=== PATIENT | male | born 1955 | race Caucasian/White ===

== ENCOUNTER 2018-07-28 19:49 | Outpatient (REF) | payer MEDICAID, SELFPAY ==
[2018-07-28 22:15] LABS: HCT 42.5 % (40.0-50.0); HGB 13.6 g/dL (13.5-17.5); Mean Corpuscular Hemoglobin 28.6 pg (27.0-33.0); Mean Corpuscular Volume 89.5 fL (80-95); Mean Platelet Volume 12.1 fL (8.0-11.0); Platelet Count 225 x1000/uL (130-400); RBC 4.75 m/cumm (4.50-6.00); RBC Distribution Width 18.3 % (11.8-14.1); Reticulocyte 1.2 % (0.5-2.4); White Blood Cell Count 6.36 k/cumm (4.4-10.8)
[2018-07-28 22:23] LABS: Albumin 3.6 g/dL (3.4-5.0)
[2018-07-28 23:04] LABS: Iron 73 ug/dL (50-175); Total Iron Binding Capacity 318 ug/dL (250-450); Transferrin Sat 23 % (20-55)
== END 2018-07-28 20:09 ==
LOC: NCHCN 19:49
PROVIDERS: PCP Physician Assistant; Visit Provider Internal Medicine
DX: D64.9 Anemia, unspecified (principal); M54.12 Radiculopathy, cervical region; M75.100 Unspecified rotator cuff tear or rupture of unspecified shoulder, not specified as traumatic
CPT/HCPCS: 85027; 82040; 83540; 83550; 85045

== ENCOUNTER 2019-05-12 08:05 | Outpatient (CLI) | payer MEDICAID, SELFPAY ==
[2019-05-12 08:25] LABS: Abs Immature Grans 0.01 k/cumm (0.0-0.09); Absolute Basophil Count 0.01 k/cumm (0.0-0.2); Absolute Eosinophil Count 0.02 k/cumm (0.0-0.7); Absolute Lymphocyte Count 1.42 k/cumm (1.2-3.4); Absolute Monocyte Count 0.67 k/cumm (0.11-0.7); Absolute Neutrophil Count 2.84 k/cumm (1.2-6.7); Basophils % 0.2; Eosinophils % 0.4; HCT 38.8 % (40.0-50.0); Immature Grans % 0.2; Lymphocytes % 28.6; Mean Corp. HGB Concentration 33.5 g/dL (32.0-36.0); Mean Corpuscular Hemoglobin 30.4 pg (27.0-33.0); Mean Corpuscular Volume 90.9 fL (80-95); Mean Platelet Volume 9.3 fL (8.0-11.0); Monocytes % 13.5; Neutrophils % 57.1; Platelet Count 240 x1000/uL (130-400); RBC 4.27 m/cumm (4.50-6.00); RBC Distribution Width 15.3 % (11.8-14.1); White Blood Cell Count 4.97 k/cumm (4.4-10.8)
[2019-05-12 08:56] LABS: ALT 37 U/L (12-78); AST 20 U/L (15-37); Albumin 3.5 g/dL (3.4-5.0); Alkaline Phosphatase 80 U/L (46-116); Anion Gap 7.4 mmol/L (3-11); BUN 21 mg/dL (7-18); Bilirubin, Total 0.3 mg/dL (0.2-1.0); CO2 27.6 mmol/L (21.0-32.0); CREATININE 1.02 mg/dL (0.70-1.30); Calcium 8.4 mg/dL (8.5-10.1); Chloride 104 mmol/L (98-107); Glucose 129 mg/dL (70-100); LDH 171 U/L (85-227); Sodium 139 mmol/L (136-145); TSH 5.37 uIU/mL (0.358-3.74); Total Protein 7.3 g/dL (6.4-8.2)
[2019-05-12 09:19] LABS: T4 7.6 ug/dL (4.5-12.5)
== END 2019-05-12 08:25 ==
PROVIDERS: PCP Internal Medicine; Visit Provider Registered Nurse Oncology
DX: C34.11 Malignant neoplasm of upper lobe, right bronchus or lung (principal)
CPT/HCPCS: 36415; 80053; 83615; 84436; 84443; 85025

== ENCOUNTER 2019-06-02 07:41 | Outpatient (CLI) | payer MEDICAID, SELFPAY ==
[2019-06-02 07:58] LABS: Abs Immature Grans 0.01 k/cumm (0.0-0.09); Absolute Basophil Count 0.02 k/cumm (0.0-0.2); Absolute Eosinophil Count 0.02 k/cumm (0.0-0.7); Absolute Lymphocyte Count 1.73 k/cumm (1.2-3.4); Absolute Monocyte Count 1.04 k/cumm (0.11-0.7); Absolute Neutrophil Count 4.26 k/cumm (1.2-6.7); Basophils % 0.3; Eosinophils % 0.3; HCT 37.5 % (40.0-50.0); HGB 12.4 g/dL (13.5-17.5); Immature Grans % 0.1; Lymphocytes % 24.4; Mean Corp. HGB Concentration 33.1 g/dL (32.0-36.0); Mean Corpuscular Hemoglobin 30.5 pg (27.0-33.0); Mean Corpuscular Volume 92.4 fL (80-95); Mean Platelet Volume 8.9 fL (8.0-11.0); Monocytes % 14.7; Neutrophils % 60.2; Platelet Count 245 x1000/uL (130-400); RBC 4.06 m/cumm (4.50-6.00); RBC Distribution Width 17.1 % (11.8-14.1); White Blood Cell Count 7.08 k/cumm (4.4-10.8)
[2019-06-02 08:20] LABS: ALT 35 U/L (12-78); AST 20 U/L (15-37); Albumin 3.2 g/dL (3.4-5.0); Alkaline Phosphatase 88 U/L (46-116); Anion Gap 11.6 mmol/L (3-11); BUN 16 mg/dL (7-18); Bilirubin, Total 0.5 mg/dL (0.2-1.0); CO2 24.4 mmol/L (21.0-32.0); CREATININE 0.97 mg/dL (0.70-1.30); Calcium 8.4 mg/dL (8.5-10.1); Chloride 103 mmol/L (98-107); Glucose 78 mg/dL (70-100); Potassium 3.9 mmol/L (3.5-5.1); Sodium 139 mmol/L (136-145); TSH 1.11 uIU/mL (0.36-3.74); Total Protein 7.4 g/dL (6.4-8.2)
[2019-06-02 08:46] LABS: LDH 170 U/L (85-227)
== END 2019-06-02 08:01 ==
PROVIDERS: PCP Internal Medicine; Visit Provider Registered Nurse Oncology
DX: C34.11 Malignant neoplasm of upper lobe, right bronchus or lung (principal)
CPT/HCPCS: 36415; 80053; 83615; 84443; 85025

== ENCOUNTER 2019-07-20 09:03 | Outpatient (CLI) | payer MEDICAID, SELFPAY ==
[2019-07-20 09:19] LABS: Abs Immature Grans 0.01 k/cumm (0.0-0.09); Absolute Basophil Count 0.01 k/cumm (0.0-0.2); Absolute Eosinophil Count 0.03 k/cumm (0.0-0.7); Absolute Lymphocyte Count 1.47 k/cumm (1.2-3.4); Absolute Monocyte Count 0.95 k/cumm (0.11-0.7); Absolute Neutrophil Count 3.96 k/cumm (1.2-6.7); Basophils % 0.2; Eosinophils % 0.5; HCT 36.7 % (40.0-50.0); Immature Grans % 0.2; Lymphocytes % 22.9; Mean Corp. HGB Concentration 32.7 g/dL (32.0-36.0); Mean Corpuscular Hemoglobin 32.2 pg (27.0-33.0); Mean Corpuscular Volume 98.4 fL (80-95); Monocytes % 14.8; Neutrophils % 61.4; Platelet Count 219 x1000/uL (130-400); RBC 3.73 m/cumm (4.50-6.00); RBC Distribution Width 17.7 % (11.8-14.1); White Blood Cell Count 6.43 k/cumm (4.4-10.8)
[2019-07-20 09:43] LABS: ALT 32 U/L (16-63); AST 20 U/L (15-37); Albumin 3.4 g/dL (3.4-5.0); Alkaline Phosphatase 79 U/L (46-116); BUN 20 mg/dL (7-18); Bilirubin, Total 0.4 mg/dL (0.2-1.0); CREATININE 1.06 mg/dL (0.70-1.30); Calcium 8.4 mg/dL (8.5-10.1); Chloride 102 mmol/L (98-107); Glucose 104 mg/dL (70-100); LDH 181 U/L (85-227); Potassium 3.8 mmol/L (3.5-5.1); Sodium 137 mmol/L (136-145); TSH 8.43 uIU/mL (0.36-3.74); Total Protein 7.4 g/dL (6.4-8.2)
[2019-07-20 09:56] LABS: T4 7.5 ug/dL (4.5-12.5)
== END 2019-07-20 09:23 ==
PROVIDERS: PCP Internal Medicine; Visit Provider Registered Nurse Oncology
DX: C34.11 Malignant neoplasm of upper lobe, right bronchus or lung (principal); E03.2 Hypothyroidism due to medicaments and other exogenous substances
CPT/HCPCS: 36415; 80053; 83615; 84436; 84443; 85025

== ENCOUNTER 2019-08-10 11:55 | Outpatient (CLI) | payer MEDICAID, SELFPAY ==
[2019-08-10 12:34] LABS: Abs Immature Grans 0.02 k/cumm (0.0-0.09); Absolute Basophil Count 0.02 k/cumm (0.0-0.2); Absolute Eosinophil Count 0.02 k/cumm (0.0-0.7); Absolute Monocyte Count 0.95 k/cumm (0.11-0.7); Absolute Neutrophil Count 5.03 k/cumm (1.2-6.7); Basophils % 0.3; Eosinophils % 0.3; HCT 36.3 % (40.0-50.0); HGB 12.1 g/dL (13.5-17.5); Immature Grans % 0.3; Lymphocytes % 19.9; Mean Corp. HGB Concentration 33.3 g/dL (32.0-36.0); Mean Corpuscular Hemoglobin 33.2 pg (27.0-33.0); Mean Corpuscular Volume 99.7 fL (80-95); Mean Platelet Volume 9.2 fL (8.0-11.0); Monocytes % 12.6; Neutrophils % 66.6; Platelet Count 279 x1000/uL (130-400); RBC 3.64 m/cumm (4.50-6.00); White Blood Cell Count 7.54 k/cumm (4.4-10.8)
[2019-08-10 12:53] LABS: ALT 25 U/L (16-63); AST 23 U/L (15-37); Albumin 3.5 g/dL (3.4-5.0); Alkaline Phosphatase 75 U/L (46-116); Anion Gap 7.1 mmol/L (3-11); BUN 20 mg/dL (7-18); Bilirubin, Total 0.3 mg/dL (0.2-1.0); CO2 28.9 mmol/L (21.0-32.0); Calcium 8.7 mg/dL (8.5-10.1); Chloride 105 mmol/L (98-107); Glucose 85 mg/dL (70-100); Potassium 4.3 mmol/L (3.5-5.1); Sodium 141 mmol/L (136-145); T4 6.3 ug/dL (4.5-12.5); TSH 23.42 uIU/mL (0.36-3.74); Total Protein 7.4 g/dL (6.4-8.2)
[2019-08-10 13:04] LABS: LDH 198 U/L (85-227)
[2019-08-10 14:59] LABS: FREE T4 0.66 ng/dL (0.76-1.46)
== END 2019-08-10 12:15 ==
PROVIDERS: PCP Internal Medicine; Visit Provider Registered Nurse Oncology
DX: C34.11 Malignant neoplasm of upper lobe, right bronchus or lung (principal); C79.51 Secondary malignant neoplasm of bone; E03.2 Hypothyroidism due to medicaments and other exogenous substances
CPT/HCPCS: 36415; 80053; 83615; 84436; 84439; 84443; 85025

== ENCOUNTER 2019-11-10 13:39 | Outpatient (CLI) | payer MEDICAID, SELFPAY ==
[2019-11-10 14:04] LABS: Abs Immature Grans 0.02 k/cumm (0.0-0.09); Absolute Basophil Count 0.02 k/cumm (0.0-0.2); Absolute Eosinophil Count 0.07 k/cumm (0.0-0.7); Absolute Lymphocyte Count 2.56 k/cumm (1.2-3.4); Absolute Monocyte Count 0.66 k/cumm (0.11-0.7); Absolute Neutrophil Count 5.77 k/cumm (1.2-6.7); Basophils % 0.2; Eosinophils % 0.8; HGB 13.7 g/dL (13.5-17.5); Immature Grans % 0.2 %; Lymphocytes % 28.1; Mean Corp. HGB Concentration 33.4 g/dL (32.0-36.0); Mean Corpuscular Volume 98.8 fL (80-95); Mean Platelet Volume 9.3 fL (8.0-11.0); Monocytes % 7.3; Neutrophils % 63.4; Platelet Count 187 x1000/uL (130-400); RBC 4.15 m/cumm (4.50-6.00); RBC Distribution Width 13.8 % (11.8-14.1)
[2019-11-10 14:30] LABS: ALT 28 U/L (16-63); AST 17 U/L (15-37); Albumin 3.6 g/dL (3.4-5.0); Alkaline Phosphatase 58 U/L (46-116); Anion Gap 9.7 mmol/L (3-11); BUN 22 mg/dL (7-18); Bilirubin, Total 0.5 mg/dL (0.2-1.0); CO2 28.3 mmol/L (21.0-32.0); Calcium 8.8 mg/dL (8.5-10.1); Chloride 102 mmol/L (98-107); Glucose 112 mg/dL (74-106); LDH 152 U/L (85-227); Potassium 3.5 mmol/L (3.5-5.1); Sodium 140 mmol/L (136-145); T4 5.7 ug/mL (4.7-13.3); TSH 47.32 uIU/mL (0.36-3.74); Total Protein 7.3 g/dL (6.4-8.2)
[2019-11-12 15:25] LABS: FREE T4 0.63 ng/dL (0.76-1.46)
== END 2019-11-10 13:59 ==
PROVIDERS: PCP Internal Medicine; Visit Provider Registered Nurse Oncology
DX: C34.11 Malignant neoplasm of upper lobe, right bronchus or lung (principal); E03.2 Hypothyroidism due to medicaments and other exogenous substances; Z79.899 Other long term (current) drug therapy
CPT/HCPCS: 36415; 80053; 83615; 84436; 84439; 84443; 85025

== ENCOUNTER 2019-12-17 13:20 | Outpatient (REF) | payer MEDICARE, MEDICAID, SELFPAY ==
[2019-12-17 19:13] LABS: Abs Immature Grans 0.02 k/cumm (0.0-0.09); Absolute Basophil Count 0.01 k/cumm (0.0-0.2); Absolute Eosinophil Count 0.07 k/cumm (0.0-0.7); Absolute Lymphocyte Count 0.98 k/cumm (1.2-3.4); Absolute Monocyte Count 0.75 k/cumm (0.11-0.7); Absolute Neutrophil Count 4.76 k/cumm (1.2-6.7); Basophils % 0.2; Eosinophils % 1.1; HCT 37.8 % (40.0-50.0); HGB 12.6 g/dL (13.5-17.5); Immature Grans % 0.3 %; Lymphocytes % 14.9; Mean Corp. HGB Concentration 33.3 g/dL (32.0-36.0); Mean Corpuscular Hemoglobin 32.4 pg (27.0-33.0); Mean Corpuscular Volume 97.2 fL (80-95); Mean Platelet Volume 9.6 fL (8.0-11.0); Monocytes % 11.4; Neutrophils % 72.1; Platelet Count 228 x1000/uL (130-400); RBC 3.89 m/cumm (4.50-6.00); RBC Distribution Width 14.4 % (11.8-14.1); White Blood Cell Count 6.59 k/cumm (4.4-10.8)
== END 2019-12-17 13:40 ==
LOC: LBN 13:20
PROVIDERS: PCP Internal Medicine; Visit Provider Internal Medicine
DX: C34.11 Malignant neoplasm of upper lobe, right bronchus or lung (principal)
CPT/HCPCS: 85025

== ENCOUNTER 2019-12-23 11:55 | Outpatient (CLI) | payer MEDICARE, MEDICAID, SELFPAY ==
[2019-12-23 12:18] LABS: Abs Immature Grans 0.01 k/cumm (0.0-0.09); Absolute Basophil Count 0.03 k/cumm (0.0-0.2); Absolute Eosinophil Count 0.12 k/cumm (0.0-0.7); Absolute Lymphocyte Count 1.99 k/cumm (1.2-3.4); Absolute Neutrophil Count 6.12 k/cumm (1.2-6.7); Basophils % 0.3; Eosinophils % 1.3; HCT 39.8 % (40.0-50.0); HGB 13.2 g/dL (13.5-17.5); Immature Grans % 0.1 %; Lymphocytes % 21.5; Mean Corp. HGB Concentration 33.2 g/dL (32.0-36.0); Mean Corpuscular Hemoglobin 32.2 pg (27.0-33.0); Mean Corpuscular Volume 97.1 fL (80-95); Mean Platelet Volume 9.2 fL (8.0-11.0); Monocytes % 10.8; Platelet Count 300 x1000/uL (130-400); RBC Distribution Width 14.5 % (11.8-14.1); White Blood Cell Count 9.27 k/cumm (4.4-10.8)
[2019-12-23 12:42] LABS: ALT 24 U/L (16-63); AST 20 U/L (15-37); Albumin 3.5 g/dL (3.4-5.0); Alkaline Phosphatase 72 U/L (46-116); Anion Gap 7.1 mmol/L (3-11); BUN 21 mg/dL (7-18); Bilirubin, Total 0.3 mg/dL (0.2-1.0); CO2 29.9 mmol/L (21.0-32.0); CREATININE 0.96 mg/dL (0.70-1.30); Calcium 8.5 mg/dL (8.5-10.1); Chloride 101 mmol/L (98-107); FREE T4 1.19 ng/dL (0.76-1.46); Glucose 91 mg/dL (74-106); LDH 189 U/L (85-227); Potassium 3.9 mmol/L (3.5-5.1); Sodium 138 mmol/L (136-145); TSH 6.96 uIU/mL (0.36-3.74); Total Protein 7.3 g/dL (6.4-8.2)
[2020-01-13 12:30] LABS: Abs Immature Grans 0.02 k/cumm (0.0-0.09); Absolute Basophil Count 0.02 k/cumm (0.0-0.2); Absolute Eosinophil Count 0.12 k/cumm (0.0-0.7); Absolute Lymphocyte Count 1.53 k/cumm (1.2-3.4); Absolute Monocyte Count 0.91 k/cumm (0.11-0.7); Absolute Neutrophil Count 6.89 k/cumm (1.2-6.7); Basophils % 0.2; Eosinophils % 1.3; HCT 38.4 % (40.0-50.0); HGB 12.8 g/dL (13.5-17.5); Immature Grans % 0.2 %; Lymphocytes % 16.1; Mean Corp. HGB Concentration 33.3 g/dL (32.0-36.0); Mean Corpuscular Hemoglobin 31.8 pg (27.0-33.0); Mean Corpuscular Volume 95.5 fL (80-95); Mean Platelet Volume 9.2 fL (8.0-11.0); Monocytes % 9.6; Neutrophils % 72.6; Platelet Count 313 x1000/uL (130-400); RBC 4.02 m/cumm (4.50-6.00); RBC Distribution Width 14.6 % (11.8-14.1); White Blood Cell Count 9.49 k/cumm (4.4-10.8)
[2020-01-13 12:47] LABS: ALT 26 U/L (16-63); AST 24 U/L (15-37); Albumin 3.1 g/dL (3.4-5.0); Alkaline Phosphatase 96 U/L (46-116); Anion Gap 8.7 mmol/L (3-11); BUN 17 mg/dL (7-18); Bilirubin, Total 0.3 mg/dL (0.2-1.0); CO2 28.3 mmol/L (21.0-32.0); CREATININE 1.01 mg/dL (0.70-1.30); Calcium 8.8 mg/dL (8.5-10.1); Chloride 100 mmol/L (98-107); FREE T4 1.23 ng/dL (0.76-1.46); Glucose 105 mg/dL (74-106); LDH 185 U/L (85-227); Potassium 4.1 mmol/L (3.5-5.1); Sodium 137 mmol/L (136-145); TSH 2.56 uIU/mL (0.36-3.74); Total Protein 7.4 g/dL (6.4-8.2)
[2020-01-13 12:57] LABS: T4 11.4 ug/mL (4.7-13.3)
== END 2019-12-23 12:15 ==
PROVIDERS: PCP Internal Medicine; Visit Provider Nurse Practitioner Adult Health
DX: E03.2 Hypothyroidism due to medicaments and other exogenous substances (principal); C34.90 Malignant neoplasm of unspecified part of unspecified bronchus or lung
CPT/HCPCS: 36415; 80053; 83615; 84439; 84443; 85025

== ENCOUNTER 2020-01-13 12:03 | Outpatient (CLI) | payer MEDICARE, MEDICAID, SELFPAY | END 2020-01-13 12:23 | PROVIDERS: PCP Internal Medicine; Visit Provider Nurse Practitioner Adult Health | DX: C34.11 Malignant neoplasm of upper lobe, right bronchus or lung (principal); E03.2 Hypothyroidism due to medicaments and other exogenous substances | CPT/HCPCS: 36415; 80053; 83615; 84436; 84439; 84443; 85025 ==

== ENCOUNTER 2020-02-25 01:40 | Outpatient (CLI) | payer MEDICARE, MEDICAID, SELFPAY ==
[2020-02-25 08:36] LABS: Abs Immature Grans 0.03 k/cumm (0.0-0.09); Absolute Basophil Count 0.01 k/cumm (0.0-0.2); Absolute Eosinophil Count 0.11 k/cumm (0.0-0.7); Absolute Monocyte Count 0.97 k/cumm (0.11-0.7); Absolute Neutrophil Count 6.45 k/cumm (1.2-6.7); Basophils % 0.1; Eosinophils % 1.2; HCT 40.1 % (40.0-50.0); HGB 13.3 g/dL (13.5-17.5); Immature Grans % 0.3 %; Lymphocytes % 17.4; Mean Corp. HGB Concentration 33.2 g/dL (32.0-36.0); Mean Corpuscular Hemoglobin 31.4 pg (27.0-33.0); Mean Corpuscular Volume 94.6 fL (80-95); Mean Platelet Volume 9.5 fL (8.0-11.0); Monocytes % 10.6; Neutrophils % 70.4; Platelet Count 300 x1000/uL (130-400); RBC 4.24 m/cumm (4.50-6.00); RBC Distribution Width 14.9 % (11.8-14.1); White Blood Cell Count 9.17 k/cumm (4.4-10.8)
[2020-02-25 09:06] LABS: ALT 31 U/L (16-63); AST 19 U/L (15-37); Albumin 3.1 g/dL (3.4-5.0); Alkaline Phosphatase 82 U/L (46-116); Anion Gap 6.9 mmol/L (3-11); BUN 17 mg/dL (7-18); Bilirubin, Total 0.3 mg/dL (0.2-1.0); CO2 30.1 mmol/L (21.0-32.0); CREATININE 1.11 mg/dL (0.70-1.30); Calcium 8.7 mg/dL (8.5-10.1); Chloride 102 mmol/L (98-107); FREE T4 1.02 ng/dL (0.76-1.46); Glucose 103 mg/dL (74-106); LDH 169 U/L (85-227); Potassium 3.7 mmol/L (3.5-5.1); Sodium 139 mmol/L (136-145); TSH 4.62 uIU/mL (0.36-3.74); Total Protein 7.1 g/dL (6.4-8.2)
== END 2020-02-25 02:00 ==
PROVIDERS: PCP Internal Medicine; Visit Provider Nurse Practitioner Adult Health
DX: E03.2 Hypothyroidism due to medicaments and other exogenous substances (principal); C34.11 Malignant neoplasm of upper lobe, right bronchus or lung
CPT/HCPCS: 36415; 80053; 83615; 84436; 84439; 84443; 85025

== ENCOUNTER 2020-03-17 01:45 | Outpatient (CLI) | payer MEDICARE, MEDICAID, SELFPAY ==
[2020-03-17 08:26] LABS: Abs Immature Grans 0.02 k/cumm (0.0-0.09); Absolute Basophil Count 0.02 k/cumm (0.0-0.2); Absolute Eosinophil Count 0.09 k/cumm (0.0-0.7); Absolute Lymphocyte Count 0.93 k/cumm (1.2-3.4); Absolute Neutrophil Count 6.11 k/cumm (1.2-6.7); Basophils % 0.2; Eosinophils % 1.1; HCT 39.1 % (40.0-50.0); HGB 12.8 g/dL (13.5-17.5); Immature Grans % 0.2 %; Lymphocytes % 11.4; Mean Corp. HGB Concentration 32.7 g/dL (32.0-36.0); Mean Corpuscular Hemoglobin 30.6 pg (27.0-33.0); Mean Corpuscular Volume 93.5 fL (80-95); Mean Platelet Volume 10.2 fL (8.0-11.0); Monocytes % 12.2; Neutrophils % 74.9; Platelet Count 256 x1000/uL (130-400); RBC 4.18 m/cumm (4.50-6.00); RBC Distribution Width 15.3 % (11.8-14.1); White Blood Cell Count 8.17 k/cumm (4.4-10.8)
[2020-03-17 08:48] LABS: ALT 34 U/L (16-63); AST 22 U/L (15-37); Albumin 3.5 g/dL (3.4-5.0); Alkaline Phosphatase 84 U/L (46-116); Anion Gap 6.6 mmol/L (3-11); BUN 15 mg/dL (7-18); Bilirubin, Total 0.5 mg/dL (0.2-1.0); CO2 26.4 mmol/L (21.0-32.0); Calcium 8.7 mg/dL (8.5-10.1); Chloride 102 mmol/L (98-107); FREE T4 1.25 ng/dL (0.76-1.46); Glucose 144 mg/dL (74-106); LDH 193 U/L (85-227); Potassium 3.9 mmol/L (3.5-5.1); Sodium 135 mmol/L (136-145); TSH 1.61 uIU/mL (0.36-3.74); Total Protein 7.3 g/dL (6.4-8.2)
== END 2020-03-17 02:05 ==
PROVIDERS: PCP Internal Medicine; Visit Provider Registered Nurse Oncology
DX: C34.11 Malignant neoplasm of upper lobe, right bronchus or lung (principal); E03.2 Hypothyroidism due to medicaments and other exogenous substances
CPT/HCPCS: 36415; 80053; 83615; 84436; 84439; 84443; 85025

== ENCOUNTER 2020-04-05 02:21 | Outpatient (CLI) | payer MEDICARE, MEDICAID, SELFPAY ==
--- NOTE | 2020-04-05 13:43 | DI.CT_ITS ---
EXAM: CT CHEST W CLINICAL HISTORY: PRIMARY MALIGNANT NEOPLASM RT UPPER LOBE OF LUNG C34.11, ASSESS TREATMENT TECHNIQUE: CT examination of the chest was performed with intravenous infusion of 70 cc of Omnipaque 350. COMPARISON: CT CT CHEST/ABD/PELVIS W/CONTRAST-M2 from 06/26/[address] CHEST W CONTRAST from 02/03/2020 FINDINGS: The patient reportedly has a history of right upper lobe lung carcinoma, treated. Current examinatio n is compared with most recent available chest CT from [facility] of February 03, 2020. Images obtained through the upper abdomen show unremarkable appearance of adrenals and upper poles of the kidneys, pancreas is unremarkable in appearance. Low-attenuation central hepatic lesion is unch anged in appearance in comparison with prior abdominal CT from [facility] of June 2019 and is incompletely visualized. Multiple pleural-based nodules are again seen on the right, the largest about 7 millimeters in diamet er, unchanged from prior study. Streaky predominantly linear changes in right upper again noted, nanette ssly unchanged. No new intrapulmonary mass identified. Ascending aorta is ectatic at 44 millimeters. No evidence of dissection. No pulmonary embolic disea se identified. No significant mediastinal adenopathy. Mildly prominent pretracheal and AP window no phil noted. No axillary or supraclavicular adenopathy. No bony lesion identified on scanning of the thorax. IMPRESSION: Stable post treatment changes in right upper lobe, stable right-sided pleural-based nodules. No daniela dence of new intrathoracic disease.
[2020-04-05 13:55] LABS: Abs Immature Grans 0.01 k/cumm (0.0-0.09); Absolute Basophil Count 0.02 k/cumm (0.0-0.2); Absolute Eosinophil Count 0.09 k/cumm (0.0-0.7); Absolute Lymphocyte Count 1.06 k/cumm (1.2-3.4); Absolute Monocyte Count 0.83 k/cumm (0.11-0.7); Absolute Neutrophil Count 6.99 k/cumm (1.2-6.7); Basophils % 0.2; HCT 37.8 % (40.0-50.0); HGB 12.3 g/dL (13.5-17.5); Immature Grans % 0.1 %; Lymphocytes % 11.8; Mean Corp. HGB Concentration 32.5 g/dL (32.0-36.0); Mean Corpuscular Hemoglobin 30.6 pg (27.0-33.0); Mean Platelet Volume 9.8 fL (8.0-11.0); Monocytes % 9.2; Neutrophils % 77.7; Platelet Count 252 x1000/uL (130-400); RBC 4.02 m/cumm (4.50-6.00); RBC Distribution Width 15.8 % (11.8-14.1)
[2020-04-05] MEDS: Omnipaque 350 MG/ML 100 ML BTL IJ (13:59)
[2020-04-05] MEDS: Normal Saline Flush 10 ML SYR IVP (14:00)
[2020-04-05 14:14] LABS: ALT 30 U/L (16-63); AST 25 U/L (15-37); Albumin 3.3 g/dL (3.4-5.0); Alkaline Phosphatase 90 U/L (46-116); Anion Gap 4.8 mmol/L (3-11); BUN 17 mg/dL (7-18); Bilirubin, Total 0.4 mg/dL (0.2-1.0); CO2 31.2 mmol/L (21.0-32.0); CREATININE 1.05 mg/dL (0.70-1.30); Calcium 8.7 mg/dL (8.5-10.1); Chloride 101 mmol/L (98-107); FREE T4 1.24 ng/dL (0.76-1.46); Glucose 90 mg/dL (74-106); LDH 208 U/L (85-227); Potassium 4.1 mmol/L (3.5-5.1); Sodium 137 mmol/L (136-145); TSH 1.49 uIU/mL (0.36-3.74); Total Protein 7.4 g/dL (6.4-8.2)
== END 2020-04-05 02:41 ==
PROVIDERS: Nurse Practitioner Adult Health; PCP Internal Medicine; Visit Provider Internal Medicine Hematology & Oncology
DX: E03.2 Hypothyroidism due to medicaments and other exogenous substances (principal); C34.11 Malignant neoplasm of upper lobe, right bronchus or lung; J98.4 Other disorders of lung
CPT/HCPCS: 36415; 80053; 71260; 83615; 84439; 84443; 85025; J3490

== ENCOUNTER 2020-04-28 02:36 | Outpatient (CLI) | payer MEDICARE, MEDICAID, SELFPAY ==
[2020-04-28 11:48] LABS: Abs Immature Grans 0.02 k/cumm (0.0-0.09); Absolute Basophil Count 0.02 k/cumm (0.0-0.2); Absolute Eosinophil Count 0.17 k/cumm (0.0-0.7); Absolute Lymphocyte Count 1.46 k/cumm (1.2-3.4); Absolute Monocyte Count 0.98 k/cumm (0.11-0.7); Absolute Neutrophil Count 6.05 k/cumm (1.2-6.7); Basophils % 0.2; HCT 38.4 % (40.0-50.0); HGB 12.6 g/dL (13.5-17.5); Immature Grans % 0.2 %; Lymphocytes % 16.8; Mean Corp. HGB Concentration 32.8 g/dL (32.0-36.0); Mean Corpuscular Hemoglobin 30.6 pg (27.0-33.0); Mean Corpuscular Volume 93.2 fL (80-95); Mean Platelet Volume 9.9 fL (8.0-11.0); Monocytes % 11.3; Neutrophils % 69.5; Platelet Count 288 x1000/uL (130-400); RBC 4.12 m/cumm (4.50-6.00)
[2020-04-28 12:18] LABS: ALT 25 U/L (16-63); AST 20 U/L (15-37); Albumin 3.1 g/dL (3.4-5.0); Alkaline Phosphatase 100 U/L (46-116); Anion Gap 6.6 mmol/L (3-11); BUN 16 mg/dL (7-18); Bilirubin, Total 0.4 mg/dL (0.2-1.0); CO2 30.4 mmol/L (21.0-32.0); Calcium 8.9 mg/dL (8.5-10.1); Chloride 103 mmol/L (98-107); Glucose 91 mg/dL (74-106); LDH 175 U/L (85-227); Potassium 3.9 mmol/L (3.5-5.1); Sodium 140 mmol/L (136-145); TSH 0.96 uIU/mL (0.36-3.74); Total Protein 7.1 g/dL (6.4-8.2)
[2020-04-28 12:34] LABS: FREE T4 1.25 ng/dL (0.76-1.46)
== END 2020-04-28 02:56 ==
PROVIDERS: PCP Internal Medicine; Visit Provider Nurse Practitioner Adult Health
DX: C34.90 Malignant neoplasm of unspecified part of unspecified bronchus or lung (principal); E03.2 Hypothyroidism due to medicaments and other exogenous substances
CPT/HCPCS: 36415; 80053; 83615; 84439; 84443; 85025

== ENCOUNTER 2020-05-19 02:23 | Outpatient (CLI) | payer MEDICARE, MEDICAID, SELFPAY ==
[2020-05-19 10:35] LABS: Abs Immature Grans 0.03 k/cumm (0.0-0.09); Absolute Basophil Count 0.02 k/cumm (0.0-0.2); Absolute Eosinophil Count 0.02 k/cumm (0.0-0.7); Absolute Lymphocyte Count 1.19 k/cumm (1.2-3.4); Absolute Neutrophil Count 5.58 k/cumm (1.2-6.7); Basophils % 0.3; Eosinophils % 0.3; HGB 11.9 g/dL (13.5-17.5); Immature Grans % 0.4 %; Lymphocytes % 15.6; Mean Corp. HGB Concentration 32.2 g/dL (32.0-36.0); Mean Corpuscular Hemoglobin 30.3 pg (27.0-33.0); Mean Corpuscular Volume 94.1 fL (80-95); Mean Platelet Volume 9.4 fL (8.0-11.0); Monocytes % 10.5; Neutrophils % 72.9; Platelet Count 340 x1000/uL (130-400); RBC 3.93 m/cumm (4.50-6.00); RBC Distribution Width 17.1 % (11.8-14.1); White Blood Cell Count 7.64 k/cumm (4.4-10.8)
[2020-05-19 10:57] LABS: ALT 30 U/L (16-63); AST 25 U/L (15-37); Albumin 3.3 g/dL (3.4-5.0); Alkaline Phosphatase 100 U/L (46-116); Anion Gap 10.1 mmol/L (3-11); BUN 16 mg/dL (7-18); Bilirubin, Total 0.3 mg/dL (0.2-1.0); CO2 25.9 mmol/L (21.0-32.0); CREATININE 1.03 mg/dL (0.70-1.30); Calcium 8.9 mg/dL (8.5-10.1); Chloride 100 mmol/L (98-107); FREE T4 1.27 ng/dL (0.76-1.46); Glucose 124 mg/dL (74-106); LDH 188 U/L (85-227); Potassium 4.3 mmol/L (3.5-5.1); Sodium 136 mmol/L (136-145); TSH 0.89 uIU/mL (0.36-3.74); Total Protein 7.4 g/dL (6.4-8.2)
== END 2020-05-19 02:43 ==
PROVIDERS: PCP Internal Medicine; Visit Provider Nurse Practitioner Adult Health
DX: C34.90 Malignant neoplasm of unspecified part of unspecified bronchus or lung (principal); E03.2 Hypothyroidism due to medicaments and other exogenous substances
CPT/HCPCS: 36415; 80053; 83615; 84439; 84443; 85025

== ENCOUNTER 2020-06-15 02:34 | Outpatient (CLI) | payer MEDICARE, MEDICAID, SELFPAY ==
[2020-06-15 08:44] LABS: Abs Immature Grans 0.02 10^3/uL (0.0-0.06); HCT 38.9 % (40.0-50.0); HGB 12.2 g/dL (13.5-17.5); MCH 30.5 pg (27.0-33.0); MCHC 31.4 % (32.0-36.0); MCV 97.3 fL (80-95); MPV 10.1 fL (8.0-11.0); Nucleated RBC 0 %; Platelet Count 214 10^3/uL (130-400); RDW 16.8 % (11.8-14.1); RDW-SD 59.8 fL
[2020-06-15 09:08] LABS: ALT 33 U/L (16-63); AST 30 U/L (15-37); Albumin 3.4 g/dL (3.4-5.0); Alkaline Phosphatase 85 U/L (46-116); Anion Gap 3.1 mmol/L (3-11); BUN 17 mg/dL (7-18); Bilirubin, Total 0.6 mg/dL (0.2-1.0); CO2 32.9 mmol/L (21.0-32.0); CREATININE 1.03 mg/dL (0.70-1.30); Calcium 9.3 mg/dL (8.5-10.1); Chloride 101 mmol/L (98-107); FREE T4 1.08 ng/dL (0.76-1.46); Glucose 94 mg/dL (74-106); LDH 293 U/L (85-227); Potassium 4.1 mmol/L (3.5-5.1); Sodium 137 mmol/L (136-145); Total Protein 7.3 g/dL (6.4-8.2)
[2020-06-15 09:11] LABS: Absolute Neutrophil Count 5.18 10^3/uL (1.2-6.7)
[2020-06-15 09:12] LABS: Absolute Eosinophil Count 0.07 10^3/uL (0.0-0.7); Absolute Monocyte Count 0.15 10^3/uL (0.1-0.8); Atypical Lymphocytes % 3; Diff Comment Manual Differential; RBC Morphology Normal
== END 2020-06-15 02:54 ==
PROVIDERS: PCP Internal Medicine; Visit Provider Internal Medicine Hematology & Oncology
DX: C34.11 Malignant neoplasm of upper lobe, right bronchus or lung (principal); E03.2 Hypothyroidism due to medicaments and other exogenous substances
CPT/HCPCS: 36415; 80053; 83615; 84439; 84443; 85025

== ENCOUNTER 2020-06-30 08:03 | Outpatient (CLI) | payer MEDICARE, MEDICAID, SELFPAY ==
[2020-06-30 08:18] LABS: Abs Immature Grans 0.03 10^3/uL (0.0-0.06); Absolute Basophil Count 0.03 10^3/uL (0.0-0.2); Absolute Eosinophil Count 0.08 10^3/uL (0.0-0.7); Absolute Lymphocyte Count 1.83 10^3/uL (1.2-3.4); Absolute Monocyte Count 1.02 10^3/uL (0.1-0.8); Absolute Neutrophil Count 4.74 10^3/uL (1.2-6.7); Basophils % 0.4; HCT 35.9 % (40.0-50.0); HGB 11.3 g/dL (13.5-17.5); Immature Grans % 0.4; Lymphocytes % 23.7; MCH 31.1 pg (27.0-33.0); MCHC 31.5 % (32.0-36.0); MCV 98.9 fL (80-95); MPV 9.6 fL (8.0-11.0); Monocytes % 13.2; Neutrophils % 61.3; Nucleated RBC 0 %; Platelet Count 245 10^3/uL (130-400); RBC 3.63 10^6/uL (4.36-5.78); RDW-SD 62.4 fL; WBC 7.73 10^3/uL (4.4-10.8)
[2020-06-30 08:45] LABS: ALT 27 U/L (16-63); AST 20 U/L (15-37); Albumin 3.4 g/dL (3.4-5.0); Alkaline Phosphatase 78 U/L (46-116); BUN 18 mg/dL (7-18); Bilirubin, Total 0.4 mg/dL (0.2-1.0); CREATININE 0.96 mg/dL (0.70-1.30); Calcium 8.6 mg/dL (8.5-10.1); Chloride 101 mmol/L (98-107); Glucose 76 mg/dL (74-106); LDH 177 U/L (85-227); Potassium 3.6 mmol/L (3.5-5.1); Sodium 138 mmol/L (136-145); TSH 2.66 uIU/mL (0.36-3.74); Total Protein 7.2 g/dL (6.4-8.2)
== END 2020-06-30 08:23 ==
PROVIDERS: PCP Internal Medicine; Visit Provider Internal Medicine Hematology & Oncology
DX: C34.11 Malignant neoplasm of upper lobe, right bronchus or lung (principal); Z79.899 Other long term (current) drug therapy
CPT/HCPCS: 36415; 80053; 83615; 84439; 84443; 85025

== ENCOUNTER 2020-07-21 10:07 | Outpatient (CLI) | payer MEDICARE, MEDICAID, SELFPAY ==
[2020-07-21 10:23] LABS: Abs Immature Grans 0.04 10^3/uL (0.0-0.06); Absolute Basophil Count 0.03 10^3/uL (0.0-0.2); Absolute Eosinophil Count 0.13 10^3/uL (0.0-0.7); Absolute Lymphocyte Count 2.01 10^3/uL (1.2-3.4); Absolute Monocyte Count 0.97 10^3/uL (0.1-0.8); Absolute Neutrophil Count 5.11 10^3/uL (1.2-6.7); Basophils % 0.4; Eosinophils % 1.6; HCT 39.4 % (40.0-50.0); HGB 12.3 g/dL (13.5-17.5); Immature Grans % 0.5; Lymphocytes % 24.2; MCHC 31.2 % (32.0-36.0); MCV 99.2 fL (80-95); MPV 9.5 fL (8.0-11.0); Monocytes % 11.7; Neutrophils % 61.6; Nucleated RBC 0 %; Platelet Count 305 10^3/uL (130-400); RBC 3.97 10^6/uL (4.36-5.78); RDW 16.4 % (11.8-14.1); RDW-SD 59.4 fL; WBC 8.29 10^3/uL (4.4-10.8)
[2020-07-21 10:45] LABS: ALT 30 U/L (16-63); AST 23 U/L (15-37); Albumin 3.3 g/dL (3.4-5.0); Alkaline Phosphatase 88 U/L (46-116); Anion Gap 5.7 mmol/L (3-11); BUN 17 mg/dL (7-18); Bilirubin, Total 0.4 mg/dL (0.2-1.0); CO2 31.3 mmol/L (21.0-32.0); CREATININE 1.06 mg/dL (0.70-1.30); Calcium 9.2 mg/dL (8.5-10.1); Chloride 103 mmol/L (98-107); FREE T4 0.99 ng/dL (0.76-1.46); Glucose 106 mg/dL (74-106); LDH 207 U/L (85-227); Potassium 3.8 mmol/L (3.5-5.1); Sodium 140 mmol/L (136-145); TSH 2.99 uIU/mL (0.36-3.74); Total Protein 7.4 g/dL (6.4-8.2)
== END 2020-07-21 10:27 ==
PROVIDERS: PCP Internal Medicine; Visit Provider Internal Medicine Hematology & Oncology
DX: C34.11 Malignant neoplasm of upper lobe, right bronchus or lung (principal); E03.2 Hypothyroidism due to medicaments and other exogenous substances
CPT/HCPCS: 36415; 80053; 83615; 84439; 84443; 85025

== ENCOUNTER 2020-08-11 08:01 | Outpatient (CLI) | payer MEDICARE, MEDICAID, SELFPAY ==
[2020-08-11 10:25] LABS: Abs Immature Grans 0.02 10^3/uL (0.0-0.06); Absolute Basophil Count 0.03 10^3/uL (0.0-0.2); Absolute Eosinophil Count 0.15 10^3/uL (0.0-0.7); Absolute Lymphocyte Count 1.07 10^3/uL (1.2-3.4); Absolute Monocyte Count 0.88 10^3/uL (0.1-0.8); Absolute Neutrophil Count 5.93 10^3/uL (1.2-6.7); Basophils % 0.4; Eosinophils % 1.9; HGB 13.3 g/dL (13.5-17.5); Immature Grans % 0.2; Lymphocytes % 13.2; MCH 31.8 pg (27.0-33.0); MCHC 32.4 % (32.0-36.0); MCV 98.1 fL (80-95); MPV 10.1 fL (8.0-11.0); Monocytes % 10.9; Neutrophils % 73.4; Nucleated RBC 0 %; Platelet Count 231 10^3/uL (130-400); RBC 4.18 10^6/uL (4.36-5.78); RDW 15.7 % (11.8-14.1); RDW-SD 56.2 fL; WBC 8.08 10^3/uL (4.4-10.8)
[2020-08-11 10:50] LABS: ALT 27 U/L (16-63); AST 22 U/L (15-37); Albumin 3.4 g/dL (3.4-5.0); Alkaline Phosphatase 72 U/L (46-116); Anion Gap 6.9 mmol/L (3-11); BUN 22 mg/dL (7-18); Bilirubin, Total 0.4 mg/dL (0.2-1.0); CO2 29.1 mmol/L (21.0-32.0); CREATININE 1.08 mg/dL (0.70-1.30); Chloride 102 mmol/L (98-107); Glucose 107 mg/dL (74-106); LDH 176 U/L (85-227); Potassium 4.2 mmol/L (3.5-5.1); Sodium 138 mmol/L (136-145); TSH 5.12 uIU/mL (0.36-3.74); Total Protein 7.2 g/dL (6.4-8.2)
== END 2020-08-11 08:21 ==
PROVIDERS: PCP Internal Medicine; Visit Provider Nurse Practitioner Adult Health
DX: C34.90 Malignant neoplasm of unspecified part of unspecified bronchus or lung (principal); E03.2 Hypothyroidism due to medicaments and other exogenous substances
CPT/HCPCS: 36415; 80053; 83615; 84439; 84443; 85025

== ENCOUNTER 2021-01-02 02:40 | Outpatient (CLI) | payer OTHER, MEDICAID, SELFPAY ==
--- NOTE | 2021-01-02 | DI.MRI_ITS ---
EXAM: MR BRAIN WO/W CLINICAL HISTORY: METASTATIC LUNG CA,OFF TREATMENT,NEW DIZZINESS,BALANCE ISSUES, MEMORY PROBL TECHNIQUE: Multiplanar multisequence MRI of the brain was performed. CONTRAST MATERIAL: IV Contrast: 12 ML of Dotarem contrast administered. COMPARISON: No previous for comparison. FINDINGS: VENTRICLES AND EXTRA AXIAL SPACES: Normal in size and morphology for the patient's age. HEMORRHAGE: None. CEREBRAL PARENCHYMA: No focus of restricted diffusion to suggest acute infarct. No space-occupying le lisa identified. There are scattered areas of hyperintense signal in the white matter on the T2 and F LAIR images consistent with chronic microvascular ischemic disease. MIDLINE SHIFT: None. BRAINSTEM/CEREBELLUM: Normal. CALVARIUM: Normal. ENHANCEMENT: No suspicious enhancement identified. VISUALIZED PARANASAL SINUSES/MASTOIDS: There is a mucous retention cyst or polyp in the right maxilla ry sinus. The remaining visualized paranasal sinuses are clear. MI'KMAQ OF ESCALONA: Normal flow void. PITUITARY GLAND: Unremarkable. OTHER FINDINGS: IMPRESSION: 1. No intracranial mass, metastatic disease or acute infarct. 2. Findings suggestive of chronic microvascular ischemic disease. 3. Mucous retention cyst or polyp in the right maxillary sinus. DATA REPOSITORY:
[2021-01-02] MEDS: Normal Saline Flush 10 ML SYR IVP (11:39)
[2021-01-02] MEDS: Gadoterate meglumine 20 ML VIAL 12 ML IVP (11:40)
== END 2021-01-02 03:00 ==
PROVIDERS: PCP Internal Medicine; Visit Provider Internal Medicine Hematology & Oncology
DX: R42 Dizziness and giddiness (principal); R41.89 Other symptoms and signs involving cognitive functions and awareness; R26.89 Other abnormalities of gait and mobility; C34.11 Malignant neoplasm of upper lobe, right bronchus or lung
CPT/HCPCS: 70553

== ENCOUNTER 2021-02-17 13:57 | Outpatient (REF) | payer OTHER, MEDICAID, SELFPAY ==
[2021-02-17 19:23] LABS: WBC 0-2 HPF (0-5)
[2021-02-17 19:24] LABS: Bacteria Negative HPF (Negative); C & S Indicated? No; Casts Negative LPF (Negative); Crystals Negative HPF (Negative); Epithelial Cells Rare HPF (Negative); Mucus Negative (Negative); Other Cells Negative (Negative); RBC Negative HPF (0-2)
== END 2021-02-17 13:58 | disposition home or self-care (01) ==
LOC: NCHCN 13:57
PROVIDERS: PCP Internal Medicine; Visit Provider Physician Assistant
DX: R31.9 Hematuria, unspecified (principal)
CPT/HCPCS: 81015

== ENCOUNTER 2021-06-01 13:15 | Outpatient (REF) | payer OTHER, MEDICAID, SELFPAY | END 2021-06-01 13:16 | disposition home or self-care (01) | LOC: NCHCN 13:15 | PROVIDERS: PCP Internal Medicine; Visit Provider Physician Assistant | DX: R35.0 Frequency of micturition (principal) | CPT/HCPCS: 87086 ==

== ENCOUNTER 2021-06-13 16:42 | Outpatient (REF) | payer OTHER, MEDICAID, SELFPAY ==
[2021-06-15 12:29] LABS: COVID-19 RT-PCR UVMMC Result Negative (Negative)
== END 2021-06-13 16:43 | disposition home or self-care (01) ==
LOC: NCHCN 16:42
PROVIDERS: PCP Internal Medicine; Visit Provider Internal Medicine
DX: Z20.822 Contact with and (suspected) exposure to COVID-19 (principal)
CPT/HCPCS: U0003

== ENCOUNTER 2021-06-19 03:03 | Outpatient (CLI) | payer OTHER, MEDICAID, SELFPAY ==
[2021-06-19 10:04] LABS: Abs Immature Grans 0.02 10^3/uL (0.0-0.06); Absolute Basophil Count 0.03 10^3/uL (0.0-0.2); Absolute Eosinophil Count 0.15 10^3/uL (0.0-0.7); Absolute Lymphocyte Count 1.51 10^3/uL (1.2-3.4); Absolute Monocyte Count 0.61 10^3/uL (0.1-0.8); Basophils % 0.4; Eosinophils % 2.2; HCT 41.9 % (40.0-50.0); HGB 13.1 g/dL (13.5-17.5); Immature Grans % 0.3; Lymphocytes % 22.5; MCH 28.4 pg (27.0-33.0); MCHC 31.3 % (32.0-36.0); MCV 90.7 fL (80-95); MPV 9.6 fL (8.0-11.0); Monocytes % 9.1; Neutrophils % 65.5; Nucleated RBC 0 %; Platelet Count 219 10^3/uL (130-400); RBC 4.62 10^6/uL (4.36-5.78); RDW 14.1 % (11.8-14.1); RDW-SD 47.2 fL; WBC 6.72 10^3/uL (4.4-10.8)
[2021-06-19 10:08] LABS: Bilirubin Negative (Negative); Blood Small (Negative); Clarity Clear (Clear); Glucose Negative (Negative); Ketones Negative (Negative); Leukocyte Esterase Small (Negative); Nitrite Negative (Negative); Urobilinogen 0.2 EU/dL (Up TO 0.2); pH 5.5 (5-8)
[2021-06-19 10:20] LABS: Bacteria Negative HPF (Negative); C & S Indicated? Yes; Casts Negative LPF (Negative); Crystals Negative HPF (Negative); Epithelial Cells Rare HPF (Negative); Mucus Negative (Negative); RBC 0-2 HPF (0-2)
[2021-06-19 10:31] LABS: ALT 22 U/L (16-63); AST 17 U/L (15-37); Albumin 3.2 g/dL (3.4-5.0); Alkaline Phosphatase 89 U/L (46-116); Anion Gap 4.9 mmol/L (3-11); BUN 20 mg/dL (7-18); Bilirubin, Total 0.3 mg/dL (0.2-1.0); CO2 32.1 mmol/L (21.0-32.0); CREATININE 1.1 mg/dL (0.70-1.30); Calcium 8.6 mg/dL (8.5-10.1); Chloride 103 mmol/L (98-107); Glucose 111 mg/dL (74-106); Potassium 3.9 mmol/L (3.5-5.1); Sodium 140 mmol/L (136-145); Total Protein 6.9 g/dL (6.4-8.2)
== END 2021-06-19 03:04 | disposition home or self-care (01) ==
PROVIDERS: PCP Internal Medicine; Visit Provider Internal Medicine Hematology & Oncology
DX: C34.11 Malignant neoplasm of upper lobe, right bronchus or lung (principal); R30.0 Dysuria
CPT/HCPCS: 36415; 80053; 81003; 81015; 85025; 87086

== ENCOUNTER 2021-07-17 04:26 | Outpatient (CLI) | payer OTHER, MEDICAID, SELFPAY ==
[2021-07-17 09:09] LABS: Abs Immature Grans 0.02 10^3/uL (0.0-0.06); Absolute Basophil Count 0.05 10^3/uL (0.0-0.2); Absolute Eosinophil Count 0.45 10^3/uL (0.0-0.7); Absolute Lymphocyte Count 1.98 10^3/uL (1.2-3.4); Absolute Monocyte Count 0.76 10^3/uL (0.1-0.8); Absolute Neutrophil Count 3.41 10^3/uL (1.2-6.7); Basophils % 0.7; Eosinophils % 6.7; HCT 42.5 % (40.0-50.0); HGB 13.2 g/dL (13.5-17.5); Immature Grans % 0.3; Lymphocytes % 29.7; MCH 28.1 pg (27.0-33.0); MCHC 31.1 % (32.0-36.0); MCV 90.6 fL (80-95); MPV 9.6 fL (8.0-11.0); Monocytes % 11.4; Neutrophils % 51.2; Nucleated RBC 0 %; Platelet Count 234 10^3/uL (130-400); RBC 4.69 10^6/uL (4.36-5.78); RDW-SD 49.6 fL; WBC 6.67 10^3/uL (4.4-10.8)
[2021-07-17 09:11] LABS: Bilirubin Negative (Negative); Blood Trace-lysed (Negative); Clarity Clear (Clear); Glucose Negative (Negative); Ketones Negative (Negative); Leukocyte Esterase Negative (Negative); Nitrite Negative (Negative); Urobilinogen 0.2 EU/dL (Up TO 0.2); pH 5.5 (5-8)
[2021-07-17 09:18] LABS: Bacteria Negative HPF (Negative); C & S Indicated? No; Casts Negative LPF (Negative); Crystals Negative HPF (Negative); Epithelial Cells Rare HPF (Negative); Mucus Negative (Negative); RBC 0-2 HPF (0-2); WBC Negative HPF (0-5)
[2021-07-17 09:27] LABS: ALT 23 U/L (16-63); AST 16 U/L (15-37); Albumin 2.9 g/dL (3.4-5.0); Alkaline Phosphatase 101 U/L (46-116); Anion Gap 5.2 mmol/L (3-11); BUN 21 mg/dL (7-18); Bilirubin, Total 0.2 mg/dL (0.2-1.0); CO2 29.8 mmol/L (21.0-32.0); CREATININE 1.1 mg/dL (0.70-1.30); Calcium 8.4 mg/dL (8.5-10.1); Chloride 105 mmol/L (98-107); Glucose 89 mg/dL (74-106); Potassium 4.4 mmol/L (3.5-5.1); Sodium 140 mmol/L (136-145); Total Protein 6.8 g/dL (6.4-8.2)
== END 2021-07-17 04:27 | disposition home or self-care (01) ==
PROVIDERS: PCP Internal Medicine; Visit Provider Internal Medicine Hematology & Oncology
DX: C34.11 Malignant neoplasm of upper lobe, right bronchus or lung (principal); R30.0 Dysuria
CPT/HCPCS: 36415; 80053; 81003; 81015; 85025

== ENCOUNTER 2021-07-28 03:48 | Outpatient (CLI) | payer OTHER, MEDICAID, SELFPAY ==
[2021-07-28] MEDS: Omnipaque 350 MG/ML 100 ML BTL IJ (15:05)
[2021-07-28] MEDS: Normal Saline Flush 10 ML SYR IVP (15:06)
--- NOTE | 2021-07-28 15:15 | DI.CT_ITS ---
Exam(s) CT CHEST W EXAM: CT CHEST W CLINICAL HISTORY: RUL LUNG CA,C34.11,ASSESS TREATMENT RESPONSE TECHNIQUE: Imaging Protocol: Axial computed tomography images with coronal and sagittal reformatted images were created and reviewed CONTRAST MATERIAL: Intravenous: Omnipaque 350 Contrast volume:70 mL. COMPARISON: CT CT CHEST W from 04/05/[address] CHEST W from 04/05/2020 FINDINGS: Tracheobronchial tree: Patent where visualized. Mediastinum and Misty: No dominant adenopathy or fluid collection. Pulmonary parenchyma: There is stable parenchymal scarring/mass in the right upper lobe. There is a stable 7 mm perifissural nodule along the right minor fissure. There is a stable 5 mm subpleural nod ule in the right lower lobe. No new pulmonary nodules are present. No focal consolidating infiltrat es. Dependent atelectasis is seen in the bases. Pleura: No effusion or pneumothorax. Heart: The heart is not dilated. Mild coronary artery calcification. No pericardial effusion. Aorta: There is stable 4.3 cm ectasia of the ascending thoracic aorta. Atherosclerosis. Upper abdomen: There is unchanged dilatation of the intrahepatic bile ducts. Lymph nodes: Within normal limits. Bones: Within normal limits for the patient's age. Soft tissues: Unremarkable. IMPRESSION: 1. Stable post treatment parenchymal scarring/mass in the right upper lobe. 2. Stable pulmonary nodules. RADIATION DOSE DELIVERED: 483.79mGy.cm Total DLP DATA REPOSITORY: All CT scans at this facility are submitted to the National Radiology Data Registry (NRDR) Dose Index Registry (DIR) with the [employer] (ACR). RADIATION OPTIMIZATION: All CT scans at this facility use at least one of these dose optimization te chniques: automated exposure control; mA and/or kV adjustment per patient size (includes targeted exa ms where dose is matched to clinical indication); or iterative reconstruction.
== END 2021-07-28 04:08 ==
PROVIDERS: PCP Internal Medicine; Visit Provider Internal Medicine Medical Oncology
DX: C34.11 Malignant neoplasm of upper lobe, right bronchus or lung (principal); K12.30 Oral mucositis (ulcerative), unspecified; R91.1 Solitary pulmonary nodule; J98.4 Other disorders of lung
CPT/HCPCS: 71260; J3490

== ENCOUNTER 2021-07-31 03:25 | Outpatient (CLI) | payer OTHER, MEDICAID, SELFPAY ==
[2021-07-31 09:52] LABS: Abs Immature Grans 0.01 10^3/uL (0.0-0.06); Absolute Basophil Count 0.03 10^3/uL (0.0-0.2); Absolute Eosinophil Count 0.02 10^3/uL (0.0-0.7); Absolute Lymphocyte Count 1.26 10^3/uL (1.2-3.4); Absolute Monocyte Count 0.79 10^3/uL (0.1-0.8); Absolute Neutrophil Count 1.04 10^3/uL (1.2-6.7); Eosinophils % 0.6; HCT 39.7 % (40.0-50.0); HGB 12.7 g/dL (13.5-17.5); Immature Grans % 0.3; MCH 28.2 pg (27.0-33.0); MCV 88.2 fL (80-95); MPV 9.2 fL (8.0-11.0); Monocytes % 25.1; Nucleated RBC 0 %; Platelet Count 218 10^3/uL (130-400); RDW 14.8 % (11.8-14.1); WBC 3.15 10^3/uL (4.4-10.8)
[2021-07-31 09:55] LABS: Bilirubin Negative (Negative); Blood Trace-lysed (Negative); Clarity Clear (Clear); Glucose Negative (Negative); Ketones Negative (Negative); Leukocyte Esterase Negative (Negative); Nitrite Negative (Negative); Urobilinogen 0.2 EU/dL (Up TO 0.2); pH 5.5 (5-8)
[2021-07-31 10:06] LABS: ALT 26 U/L (16-63); AST 20 U/L (15-37); Alkaline Phosphatase 91 U/L (46-116); Anion Gap 4.6 mmol/L (3-11); BUN 16 mg/dL (7-18); Bilirubin, Total 0.3 mg/dL (0.2-1.0); CO2 30.4 mmol/L (21.0-32.0); CREATININE 1.1 mg/dL (0.70-1.30); Calcium 8.4 mg/dL (8.5-10.1); Chloride 105 mmol/L (98-107); Glucose 87 mg/dL (74-106); Potassium 4.1 mmol/L (3.5-5.1); Sodium 140 mmol/L (136-145); Total Protein 6.9 g/dL (6.4-8.2)
[2021-07-31 10:14] LABS: Bacteria Negative HPF (Negative); C & S Indicated? No; Casts Negative LPF (Negative); Crystals Negative HPF (Negative); Epithelial Cells Rare HPF (Negative); Mucus Negative (Negative); RBC 0-2 HPF (0-2); WBC Negative HPF (0-5)
== END 2021-07-31 03:26 | disposition home or self-care (01) ==
PROVIDERS: PCP Internal Medicine; Visit Provider Internal Medicine Medical Oncology
DX: C34.11 Malignant neoplasm of upper lobe, right bronchus or lung (principal); R30.0 Dysuria
CPT/HCPCS: 80053; 81003; 81015; 85025

== ENCOUNTER 2021-08-09 09:55 | Outpatient (CLI) | payer OTHER, MEDICAID, SELFPAY ==
[2021-08-09 10:03] LABS: Abs Immature Grans 0.02 10^3/uL (0.0-0.06); Absolute Basophil Count 0.04 10^3/uL (0.0-0.2); Absolute Eosinophil Count 0.07 10^3/uL (0.0-0.7); Absolute Lymphocyte Count 1.35 10^3/uL (1.2-3.4); Absolute Monocyte Count 0.85 10^3/uL (0.1-0.8); Absolute Neutrophil Count 5.62 10^3/uL (1.2-6.7); Basophils % 0.5; Eosinophils % 0.9; HCT 41.9 % (40.0-50.0); HGB 13.1 g/dL (13.5-17.5); Immature Grans % 0.3; MCH 27.9 pg (27.0-33.0); MCHC 31.3 % (32.0-36.0); MCV 89.3 fL (80-95); MPV 9.5 fL (8.0-11.0); Monocytes % 10.7; Neutrophils % 70.6; Nucleated RBC 0 %; Platelet Count 213 10^3/uL (130-400); RBC 4.69 10^6/uL (4.36-5.78); RDW 15.6 % (11.8-14.1); RDW-SD 50.9 fL; WBC 7.95 10^3/uL (4.4-10.8)
[2021-08-09 11:27] LABS: ALT 22 U/L (16-63); AST 20 U/L (15-37); Albumin 3.1 g/dL (3.4-5.0); Alkaline Phosphatase 93 U/L (46-116); Anion Gap 5.2 mmol/L (3-11); BUN 18 mg/dL (7-18); Bilirubin, Total 0.4 mg/dL (0.2-1.0); CO2 30.8 mmol/L (21.0-32.0); CREATININE 1.1 mg/dL (0.70-1.30); Calcium 8.6 mg/dL (8.5-10.1); Chloride 104 mmol/L (98-107); Glucose 88 mg/dL (74-106); Potassium 4.6 mmol/L (3.5-5.1); Sodium 140 mmol/L (136-145); Total Protein 6.6 g/dL (6.4-8.2)
== END 2021-08-09 09:56 | disposition home or self-care (01) ==
LOC: LBO 09:59
PROVIDERS: PCP Internal Medicine; Visit Provider Internal Medicine Hematology & Oncology
DX: C34.11 Malignant neoplasm of upper lobe, right bronchus or lung (principal); R30.0 Dysuria
CPT/HCPCS: 36415; 80053; 81003; 85025

== ENCOUNTER 2021-08-28 02:27 | Outpatient (CLI) | payer MEDICARE, MEDICAID, SELFPAY ==
[2021-08-28 12:54] LABS: Abs Immature Grans 0.01 10^3/uL (0.0-0.06); Absolute Basophil Count 0.04 10^3/uL (0.0-0.2); Absolute Eosinophil Count 0.01 10^3/uL (0.0-0.7); Absolute Lymphocyte Count 1.69 10^3/uL (1.2-3.4); Absolute Monocyte Count 1.03 10^3/uL (0.1-0.8); Absolute Neutrophil Count 3.88 10^3/uL (1.2-6.7); Basophils % 0.6; Eosinophils % 0.2; HCT 42.8 % (40.0-50.0); HGB 13.2 g/dL (13.5-17.5); Immature Grans % 0.2; Lymphocytes % 25.4; MCH 27.4 pg (27.0-33.0); MCHC 30.8 % (32.0-36.0); MCV 88.8 fL (80-95); MPV 9.5 fL (8.0-11.0); Monocytes % 15.5; Neutrophils % 58.1; Nucleated RBC 0 %; Platelet Count 249 10^3/uL (130-400); RBC 4.82 10^6/uL (4.36-5.78); RDW 15.5 % (11.8-14.1); RDW-SD 50.1 fL; WBC 6.66 10^3/uL (4.4-10.8)
[2021-08-28 12:55] LABS: Bilirubin Negative (Negative); Blood Negative (Negative); Clarity Clear (Clear); Glucose Negative (Negative); Ketones Trace mg/dL (Negative); Leukocyte Esterase Negative (Negative); Nitrite Negative (Negative); Specific Gravity >= 1.030 (1.005-1.025); Urobilinogen 0.2 EU/dL (Up TO 0.2); pH 5.5 (5-8)
[2021-08-28 13:21] LABS: ALT 18 U/L (16-63); AST 13 U/L (15-37); Albumin 2.9 g/dL (3.4-5.0); Alkaline Phosphatase 95 U/L (46-116); Anion Gap 7.1 mmol/L (3-11); BUN 18 mg/dL (7-18); Bilirubin, Total 0.3 mg/dL (0.2-1.0); CO2 28.9 mmol/L (21.0-32.0); CREATININE 1.1 mg/dL (0.70-1.30); Calcium 8.8 mg/dL (8.5-10.1); Chloride 103 mmol/L (98-107); Glucose 91 mg/dL (74-106); Potassium 4.4 mmol/L (3.5-5.1); Sodium 139 mmol/L (136-145); Total Protein 6.9 g/dL (6.4-8.2)
== END 2021-08-28 02:28 | disposition home or self-care (01) ==
LOC: LBO 02:27
PROVIDERS: Internal Medicine Hematology & Oncology; PCP Internal Medicine; Visit Provider Internal Medicine Medical Oncology
DX: C34.11 Malignant neoplasm of upper lobe, right bronchus or lung (principal); R30.0 Dysuria
CPT/HCPCS: 36415; 80053; 81003; 85025

== ENCOUNTER 2021-08-31 15:11 | Emergency (ER) | payer MEDICARE, MEDICAID, SELFPAY ==
[2021-08-31 15:18] VITALS: BP 121/62; PULSE 64; RESP 18; TEMP 36.9; O2SAT 95
--- NOTE | 2021-08-31 15:30 | DI.CT_ITS ---
Exam(s) CT HEAD WO EXAM: CT HEAD WO CLINICAL HISTORY: altered mental status. TECHNIQUE: Imaging Protocol: Axial computed tomography images with coronal and sagittal reformatted images were created and reviewed COMPARISON: No exams were available for comparison FINDINGS: The ventricular system is normal in appearance. No evidence of acute intracranial hemorrhage, mass effect, or midline shift. The orbital structures are unremarkable. The temporal bone structures appear intact. Calvarium: Normal. Visualized Paranasal sinuses/Mastoids: Clear except for an apparent incidental right maxillary retent ion cyst. IMPRESSION: Normal cranial CT. RADIATION DOSE DELIVERED: 731.08mGy.cm Total DLP 731.08mGy.cm Total DLP 37.08mGy CTDIvol DATA REPOSITORY: All CT scans at this facility are submitted to the National Radiology Data Registry (NRDR) Dose Index Registry (DIR) with the [employer] (ACR). RADIATION OPTIMIZATION: All CT scans at this facility use at least one of these dose optimization te chniques: automated exposure control; mA and/or kV adjustment per patient size (includes targeted exa ms where dose is matched to clinical indication); or iterative reconstruction.
--- NOTE | 2021-08-31 15:36 | ED.GENADUL_ITS ---
Discharge Plan Disposition Patient Disposition: HOME Condition: Stable Discharge Details Clinical Impression: Altered mental status Primary Care Provider: Atilio Tirado ED Provider: Kwesi Cox Home Meds and New Rx's Prescriptions: Continued cyclobenzaprine 10 mg tablet 10 mg PO HS Qty: 90 RF: 0 mirtazapine 15 mg tablet 15 mg PO QHS Qty: 30 RF: 3 prednisone 10 mg tablet 10 mg PO DAILY Qty: 90 RF: 0 sildenafil 50 mg tablet 50 mg PO DAILY PRN (Reason: sexual activity) Qty: 30 RF: 0 tamsulosin [Flomax] 0.4 mg capsule 0.4 mg PO QHS Qty: 90 RF: 2 nicotine (polacrilex) 4 mg gum 4 mg BC .COMPLEX Qty: 100 RF: 0 docusate sodium [Colace] 100 mg capsule 100 mg PO BID RF: 0 fluoxetine 40 mg capsule 40 mg PO DAILY Qty: 90 RF: 1 hydroxyzine HCl 50 mg tablet 50 mg PO QID PRN (Reason: itching) Qty: 90 RF: 0 sennosides [senna] 8.6 mg tablet See Rx Instructions PO DAILY PRN (Reason: constipation) Qty: 60 RF: 0 levothyroxine [Synthroid] 88 mcg tablet 88 mcg PO DAILY Qty: 30 RF: 0 nicotine 7 mg/24 hr patch 24 hour 1 patch transdermal Q24H Qty: 14 RF: 2 oxycodone 10 mg tablet 10 mg PO QID MDD 40 mg PRN (Reason: pain) Qty: 90 RF: 0 fentanyl 100 mcg/hr patch 72 hour 1 patch TD Q48H MDD 100 mcg Qty: 15 RF: 0 lorazepam 1 mg tablet 1 mg PO QHS PRN (Reason: panic attacks) Qty: 30 RF: 1 Discharge Instructions Additional Instructions: your blood work, urine and cat scan did not show concerning findings at this time, this is likely induced from the sleeping issues follow up with your primary care provider within 1 week if you feel more ill, have difficulty breathing or fevers return to the emergency department Medical Decision Making 66 yo male with hx of metastatic lung cancer, on fentanyl patches and prn oxycodone for chronic pain, who comes in with with reports he was hearing voices last night. He got his moderna booster on Saturday and had difficulty sleeping that night and [place] night. He took a nap yesterday which is abnormal for him then last night was having conversations with people that weren't actually their, was hearing voices per the . He is currently asymptomatic and has not had any hallucinations this afternoon, is caox4 with clear speech and no focal neuro deficits. He has no abdominal pain or chest pain, no fevers or infectious symptoms. I suspect his episode of hallucinations was from sleep deprivation but given his history will obtain ct head to evaluate for metastases, and evaluate for electrolyte abnormality as well as possible uti. No fevers or chills so doubt sepsis as a cause of his symptoms labs and imaging unremarkable, he remains stable without symptoms here and ambulating on his own without assistance and normal gait. Discussed with pt and his and given reassuring workup and no symptoms here comfortable with dc, suspect this was likely induced by lack of sleep. Advised to f/u with pcp and return precautions given Differential Diagnosis Differential Diagnosis: sleep deprivation, vaccine reaction, hyponatremia, mets Imaging Data Radiologic Study: Attestation: I personally reviewed and interpreted this imaging study as follows: Imaging: CT Scan Radiologist's impression: PROCEDURE INFORMATION: Exam: CT Head Without Contrast Exam date and time: 08/31/2021 4:28 PM Age: 66 years old Clinical indication: Altered mental status/memory loss TECHNIQUE: Imaging protocol: Computed tomography of the head without contrast. COMPARISON: MR BRAIN WO/W 01/02/2021 11:16 AM FINDINGS: Brain: There is no intracranial hemorrhage. There is no midline shift or space occupying mass. There is normal merchant-white matter differentiation without evidence of acute large vascular territorial infarct. There is no cerebral edema. There are no extra-axial fluid collections. The posterior fossa structures are unremarkable. Cerebral ventricles: The ventricles are normal in position. No hydrocephalus. Paranasal sinuses: Mucous retention cyst RIGHT maxillary sinus. No air-fluid levels. Mastoid air cells: The tympanomastoid air cells are normally aerated as visualized. Orbital cavity: The orbits are unremarkable as visualized. Bones/joints: No acute fracture. No focal osseous lesions. Postsurgical changes at the craniocervical juncture. Soft tissues: The soft tissues are unremarkable. IMPRESSION: 1. No acute intracranial findings. 2. Additional incidental/nonemergent findings as discussed above. Lab Data Lab results reviewed: Yes I reviewed the patient's lab results. HPI General Mode of arrival: ambulatory . Date/Time Provider Initiated Documentation: 08/31/21 15:15 . Limitations to Documentation: no limitations . Information obtained by: patient and family . History of Present Illness 66 year old M presents to the emergency department with the chief complaint of last night was hearing voices, Patient started experiencing this day(s) (1) and it has been now resolved. No relieving factors improve symptom(s), No exacerbating factors reported . Patient notes no other symptoms.. Patient did receive the following treatments prior to arrival, none Related Data Home Medications Medication Instructions Recorded Confirmed nicotine (polacrilex) 4 mg gum 4 mg BC .COMPLEX #100 each 05/31/20 05/30/21 docusate sodium 100 mg capsule 100 mg PO BID 06/27/20 08/31/21 fluoxetine 40 mg capsule 40 mg PO DAILY #90 cap 09/20/20 08/31/21 cyclobenzaprine 10 mg tablet 10 mg PO HS #90 tab 10/04/20 08/31/21 hydroxyzine HCl 50 mg tablet 50 mg PO QID PRN #90 tab 12/06/20 08/31/21 sennosides 8.6 mg tablet See Rx Instructions PO DAILY PRN 12/06/20 08/31/21 #60 tab mirtazapine 15 mg tablet 15 mg PO QHS #30 tab 03/21/21 08/31/21 prednisone 10 mg tablet 10 mg PO DAILY #90 tab 03/21/21 08/31/21 sildenafil 50 mg tablet 50 mg PO DAILY PRN #30 tab 03/21/21 08/31/21 tamsulosin 0.4 mg capsule 0.4 mg PO QHS #90 cap 03/21/21 08/31/21 levothyroxine 88 mcg tablet 88 mcg PO DAILY #30 tab 05/30/21 08/31/21 nicotine 7 mg/24 hr daily 1 patch TRANSDERMAL Q24H #14 ea 05/30/21 08/31/21 transdermal patch oxycodone 10 mg tablet 10 mg PO QID PRN #90 tab MDD 40 mg 07/11/21 08/31/21 fentanyl 100 mcg/hr transdermal 1 patch TD Q48H #15 ea MDD 100 mcg 08/04/21 08/31/21 patch lorazepam 1 mg tablet 1 mg PO QHS PRN #30 tab 08/11/21 08/31/21 Previous Rx's Medication Instructions Recorded nicotine (polacrilex) 4 mg gum 4 mg BC .COMPLEX #100 each 05/31/20 fluoxetine 40 mg capsule 40 mg PO DAILY #90 cap 09/20/20 cyclobenzaprine 10 mg tablet 10 mg PO HS #90 tab 10/04/20 hydroxyzine HCl 50 mg tablet 50 mg PO QID PRN #90 tab 12/06/20 sennosides 8.6 mg tablet See Rx Instructions PO DAILY PRN 12/06/20 #60 tab mirtazapine 15 mg tablet 15 mg PO QHS #30 tab 03/21/21 prednisone 10 mg tablet 10 mg PO DAILY #90 tab 03/21/21 sildenafil 50 mg tablet 50 mg PO DAILY PRN #30 tab 03/21/21 tamsulosin 0.4 mg capsule 0.4 mg PO QHS #90 cap 03/21/21 levothyroxine 88 mcg tablet 88 mcg PO DAILY #30 tab 05/30/21 nicotine 7 mg/24 hr daily 1 patch TRANSDERMAL Q24H #14 ea 05/30/21 transdermal patch oxycodone 10 mg tablet 10 mg PO QID PRN #90 tab MDD 40 mg 07/11/21 fentanyl 100 mcg/hr transdermal 1 patch TD Q48H #15 ea MDD 100 mcg 08/04/21 patch lorazepam 1 mg tablet 1 mg PO QHS PRN #30 tab 08/11/21 Allergies Allergy/AdvReac Type Severity Reaction Status Date / Time No Known Allergies Allergy Verified 08/31/21 15:22 General Stated Complaint: AMS/LOC RADHA: 2 Review of Systems All systems reviewed & are unremarkable except as noted in HPI and below Constitutional Constitutional: Denies chills, Denies fever(s) and Denies weakness Cardiovascular Cardiovascular: Denies chest pain and Denies dyspnea Respiratory Respiratory: Denies cough and Denies dyspnea Gastrointestinal Gastrointestinal: Denies abdominal pain, Denies nausea and Denies vomiting Musculoskeletal Musculoskeletal: Denies joint swelling Neurologic Neurologic: Denies weakness [facility] Medical History (Updated 08/31/21 @ 17:37 by Kwesi Cox MD) Bladder cancer biopsy results pending Bone metastases resolved on PET scan April 2021 Cancer related pain Chronic dental infection Chronic sinus bradycardia Denial as mental defense mechanism , Alla, wants to talk about his illness; he does not Depression returned when off his SSRI Difficulty controlling anger Difficulty urinating DNI (do not intubate) DNR (do not resuscitate) Drug-induced pruritus Elevated TSH Erectile dysfunction Fatigue STOPPED ALL CANCER TREATMENT 09/23-06/24 due to fatigue Fever Forgetfulness Goals of care, counseling/discussion Hypothyroid Impingement syndrome of left shoulder Insomnia Metastasis to liver Neck and shoulder pain Palliative care patient Panic attacks POLST (Physician Orders for Life-Sustaining Treatment) Primary malignant neoplasm of right upper lobe of lung Pruritus Quit smoking within past year Regional lymph node metastasis present primary tumor stable; bone mets resolved; [address] mets PET April 2021 Seborrheic keratoses Smoking 1/2 pack a day or less Social isolation Stage IV adenocarcinoma of lung Tobacco abuse disorder back to 11/05 ppd Unintentional weight loss has regained weight coming off cancer tx Weakness Surgical History (Updated 05/30/21 @ 19:50 by Maryanne Atkins MD) H/O cervical spine surgery History of neck surgery S/P TURP Family History (Updated 05/30/21 @ 19:49 by Maryanne Atkins MD) Maternal Uncle Cancer Father , age 82 Myocardial infarction Heart disease Hypertension Hyperlipidemia Mother , age 89 from dementia Dementia Brother Prostate cancer Brother No problems noted. Brother No problems noted. Sister No problems noted. Son No problems noted. Daughter Smoker Daughter Smoker Daughter Smoker Social History (Updated 05/30/21 @ 19:54 by Maryanne Atkins MD) Smoking/Tobacco Use Status: Current every day Tobacco Type: cigarettes Tobacco: How many years used: 52 Quit status: considering quitting Second Hand Exposure: Yes Counseling given: provider counseling, support medications and counseling >10 minutes Smoking risk assessment performed?: Yes Alcohol Intake: current Alcohol Intake frequency: holidays/special occasions only Counseling provided: provider counseling and reduce to 2 or less/day Drug use: Never Caregiver/Support person: Yes Household members: spouse Housing: house Number of Children: 4 number of grandchildren: 4 Communication Needs: Hard of Hearing Education Level: high school Do you need help understanding health information?: Often current occupation: disabled from neck/shoulder OA Current gender identity: male What is your relationship status?: How often do you talk on the phone with friends or family?: twice per week How often do you get together with friends or relatives?: twice per week Do you belong to any clubs or organized social groups?: no Panel score (0-1 are the most socially isolated patients): 2 What type of physical activity do you participate in: walking, independent ambulation and additional Details: 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 smokes in house. He still smokes about 35-40 cigs per week. 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 Unable to work due to neck fusion and chronic shoulder pain. Cannot do much now. Pain controlled with 100 mcg fentanyl patch. ON break from cancer treatment currentl; supposed to restart June 2021 due to findings on recent PET scan. He's skeptical that he will be able to tolerate the side effects, but he will give it a try again. Also with likely superficial bladder cancer; had hematuria, that led to TURP. Biopsy still pending. We did review Dr Mak's notes and I tried to explain them to Don in layperson's terms. Exam Const General: no acute distress Orientation: alert [facility] Head: normal to inspection Ears: external ears normal General nose exam: external nose normal Mouth: moist mucous membranes Eyes General: appearance normal, both eyes and all related structures Neck Neck: normal visual inspection Resp Effort & Inspection: normal respiratory effort and able to speak in complete sentences Cardio Rate: regular rate GI Palpation: soft and nontender Skin General skin exam: no rashes or lesions noted Neuro General: patient alert and patient oriented x3 Extrem General: normal to inspection Psych Mental Status: mental status grossly normal Course Vital Signs Vital signs: Vital Signs Temperature 36.9 C 08/31/21 15:18 Pulse 64 08/31/21 15:18 Respiratory Rate 18 08/31/21 15:18 Blood Pressure 121/62 08/31/21 15:18 Pulse Oximetry 95 08/31/21 15:18 Temperature 36.9 C 08/31/21 15:18 Temperature Source Oral 08/31/21 15:18 Pulse 64 08/31/21 15:18 Respiratory Rate 18 10/28/21 15:18 Blood Pressure 121/62 08/31/21 15:18 Blood Pressure Position Supine 08/31/21 15:18 Pulse Oximetry 95 08/31/21 15:18 Oxygen Delivery Method Room Air 08/31/21 15:18 Oxygen Flow Rate 0 08/31/21 15:18 Pain Level 0 08/31/21 15:18
[2021-08-31 15:52] LABS: Abs Immature Grans 0.02 10^3/uL (0.0-0.06); Absolute Basophil Count 0.04 10^3/uL (0.0-0.2); Absolute Eosinophil Count 0.05 10^3/uL (0.0-0.7); Absolute Lymphocyte Count 1.61 10^3/uL (1.2-3.4); Absolute Monocyte Count 1.16 10^3/uL (0.1-0.8); Absolute Neutrophil Count 5.89 10^3/uL (1.2-6.7); Basophils % 0.5; Eosinophils % 0.6; HCT 37.3 % (40.0-50.0); HGB 11.8 g/dL (13.5-17.5); Immature Grans % 0.2; Lymphocytes % 18.4; MCH 27.7 pg (27.0-33.0); MCHC 31.6 % (32.0-36.0); MCV 87.6 fL (80-95); MPV 9.6 fL (8.0-11.0); Monocytes % 13.2; Neutrophils % 67.1; Nucleated RBC 0 %; Platelet Count 217 10^3/uL (130-400); RBC 4.26 10^6/uL (4.36-5.78); RDW 15.4 % (11.8-14.1); RDW-SD 49.4 fL; WBC 8.77 10^3/uL (4.4-10.8)
[2021-08-31 16:08] LABS: ALT 17 U/L (16-63); AST 20 U/L (15-37); Albumin 2.8 g/dL (3.4-5.0); Alkaline Phosphatase 106 U/L (46-116); Anion Gap 5.5 mmol/L (3-11); BUN 22 mg/dL (7-18); Bilirubin, Total 0.4 mg/dL (0.2-1.0); CO2 29.5 mmol/L (21.0-32.0); CREATININE 1.1 mg/dL (0.70-1.30); Calcium 8.3 mg/dL (8.5-10.1); Chloride 101 mmol/L (98-107); Glucose 107 mg/dL (74-106); Potassium 4.3 mmol/L (3.5-5.1); Sodium 136 mmol/L (136-145); Total Protein 6.7 g/dL (6.4-8.2)
[2021-08-31 16:15] LABS: Bilirubin, Direct 0.1 mg/dL (0.0-0.2); Bilirubin, Total 0.4 mg/dL (0.2-1.0); Magnesium 2.4 mg/dL (1.8-2.4); TSH (W/Ref FT4) 1.63 uIU/mL (0.36-3.74)
[2021-08-31 16:33] LABS: ETHANOL BLOOD < 3.0 mg/dL (<10)
[2021-08-31 16:40] VITALS: RESP 16
--- NOTE | 2021-08-31 16:47 | DI.VRAD_ITS ---
PROCEDURE INFORMATION: Exam: CT Head Without Contrast Exam date and time: 08/31/2021 4:28 PM Age: 66 years old Clinical indication: Altered mental status/memory loss TECHNIQUE: Imaging protocol: Computed tomography of the head without contrast. COMPARISON: MR BRAIN WO/W 01/02/2021 11:16 AM FINDINGS: Brain: There is no intracranial hemorrhage. There is no midline shift or space occupying mass. There is normal merchant-white matter differentiation without evidence of acute large vascular territorial infarct. There is no cerebral edema. There are no extra-axial fluid collections. The posterior fossa structures are unremarkable. Cerebral ventricles: The ventricles are normal in position. No hydrocephalus. Paranasal sinuses: Mucous retention cyst RIGHT maxillary sinus. No air-fluid levels. Mastoid air cells: The tympanomastoid air cells are normally aerated as visualized. Orbital cavity: The orbits are unremarkable as visualized. Bones/joints: No acute fracture. No focal osseous lesions. Postsurgical changes at the craniocervical juncture. Soft tissues: The soft tissues are unremarkable. IMPRESSION: 1. No acute intracranial findings. 2. Additional incidental/nonemergent findings as discussed above. Dictated and Authenticated by: Yamilet Gaitan MD. Ordering:SHERLEY Orosco MD
[2021-08-31 17:17] LABS: Bilirubin Negative (Negative); Blood Negative (Negative); Clarity Clear (Clear); Glucose Negative (Negative); Ketones Negative (Negative); Leukocyte Esterase Negative (Negative); Nitrite Negative (Negative); Specific Gravity 1.025 (1.005-1.025); Urobilinogen 0.2 EU/dL (Up TO 0.2); pH 5.5 (5-8)
[2021-08-31 17:36] LABS: *AMPHETAMINES SCREEN URINE Negative (Negative); *BARBITURATES SCREEN URINE Negative (Negative); *BENZODIAZEPINES SCREEN URINE Negative (Negative); Cannabinoids THC Negative (Negative); Cocaine Screen,Urine Negative (Negative); METHADONE URINE SCREEN Negative (Negative); OPIATES URINE SCREEN Negative (Negative)
[2021-08-31 17:37] LABS: Tricyclic Antidepressants Positive (Negative)
[2021-08-31 17:47] VITALS: BP 120/60; PULSE 66; RESP 16; TEMP 36.9; O2SAT 95
== END 2021-08-31 17:48 | disposition home or self-care (01) ==
PROVIDERS: Emergency Provider Emergency Medicine; PCP Internal Medicine
DX: R41.82 Altered mental status, unspecified (principal); R44.0 Auditory hallucinations; E03.9 Hypothyroidism, unspecified; Z79.891 Long term (current) use of opiate analgesic
CPT/HCPCS: 80053; 80307; 99284; 70450; 80320; 81003; 82247; 82248; 83735; 84443; 85025

== ENCOUNTER 2021-10-30 13:27 | Outpatient (RCR) | payer MEDICARE, MEDICAID, SELFPAY ==
[2021-10-30 13:50] LABS: Abs Immature Grans 0.02 10^3/uL (0.0-0.06); Absolute Basophil Count 0.01 10^3/uL (0.0-0.2); Absolute Eosinophil Count 0.12 10^3/uL (0.0-0.7); Absolute Monocyte Count 0.58 10^3/uL (0.1-0.8); Absolute Neutrophil Count 5.07 10^3/uL (1.2-6.7); Basophils % 0.1; Eosinophils % 1.6; HCT 40.5 % (40.0-50.0); HGB 12.5 g/dL (13.5-17.5); Immature Grans % 0.3; Lymphocytes % 20.5; MCH 26.4 pg (27.0-33.0); MCHC 30.9 % (32.0-36.0); MCV 85.6 fL (80-95); MPV 9.7 fL (8.0-11.0); Monocytes % 7.9; Neutrophils % 69.6; Nucleated RBC 0 %; Platelet Count 216 10^3/uL (130-400); RBC 4.73 10^6/uL (4.36-5.78); RDW 15.7 % (11.8-14.1); RDW-SD 48.9 fL
[2021-10-30 14:11] LABS: ALT 19 U/L (16-63); AST 15 U/L (15-37); Albumin 3.1 g/dL (3.4-5.0); Alkaline Phosphatase 100 U/L (46-116); Anion Gap 3.4 mmol/L (3-11); BUN 17 mg/dL (7-18); Bilirubin, Total 0.3 mg/dL (0.2-1.0); CO2 32.6 mmol/L (21.0-32.0); CREATININE 0.9 mg/dL (0.70-1.30); Calcium 8.7 mg/dL (8.5-10.1); Chloride 102 mmol/L (98-107); FREE T4 1.03 ng/dL (0.76-1.46); Glucose 114 mg/dL (74-106); Potassium 4.6 mmol/L (3.5-5.1); Sodium 138 mmol/L (136-145); TSH 1.87 uIU/mL (0.36-3.74); Total Protein 7.1 g/dL (6.4-8.2)
== END 2021-11-03 23:59 | disposition home or self-care (01) ==
LOC: INF 13:27
PROVIDERS: PCP Internal Medicine; Visit Provider Internal Medicine Medical Oncology
DX: C34.11 Malignant neoplasm of upper lobe, right bronchus or lung (principal); F32.0 Major depressive disorder, single episode, mild; C79.51 Secondary malignant neoplasm of bone; R30.0 Dysuria
CPT/HCPCS: 36415; 80053; 84439; 84443; 85025

== ENCOUNTER 2021-11-14 02:27 | Outpatient (CLI) | payer MEDICARE, MEDICAID, SELFPAY ==
[2021-11-14 13:35] LABS: Bilirubin Negative (Negative); Blood Trace-intact (Negative); Clarity Clear (Clear); Glucose Negative (Negative); Ketones Negative (Negative); Leukocyte Esterase Negative (Negative); Nitrite Negative (Negative); Specific Gravity >= 1.030 (1.005-1.025); Urobilinogen 0.2 EU/dL (Up TO 0.2); pH 5.5 (5-8)
[2021-11-14 13:39] LABS: Abs Immature Grans 0.01 10^3/uL (0.0-0.06); Absolute Basophil Count 0.02 10^3/uL (0.0-0.2); Absolute Eosinophil Count 0.03 10^3/uL (0.0-0.7); Absolute Lymphocyte Count 1.49 10^3/uL (1.2-3.4); Absolute Monocyte Count 0.45 10^3/uL (0.1-0.8); Basophils % 0.5; Eosinophils % 0.7; HCT 40.8 % (40.0-50.0); HGB 12.8 g/dL (13.5-17.5); Immature Grans % 0.2; Lymphocytes % 33.9; MCH 27.2 pg (27.0-33.0); MCHC 31.4 % (32.0-36.0); MCV 86.8 fL (80-95); MPV 9.4 fL (8.0-11.0); Monocytes % 10.2; Neutrophils % 54.5; Nucleated RBC 0 %; Platelet Count 150 10^3/uL (130-400); RDW 14.9 % (11.8-14.1); RDW-SD 47.7 fL
[2021-11-14 13:47] LABS: ALT 25 U/L (16-63); AST 17 U/L (15-37); Albumin 3.2 g/dL (3.4-5.0); Alkaline Phosphatase 96 U/L (46-116); Anion Gap 4.2 mmol/L (3-11); BUN 19 mg/dL (7-18); Bilirubin, Total 0.2 mg/dL (0.2-1.0); CO2 31.8 mmol/L (21.0-32.0); CREATININE 0.9 mg/dL (0.70-1.30); Calcium 8.6 mg/dL (8.5-10.1); Chloride 106 mmol/L (98-107); Glucose 75 mg/dL (74-106); Potassium 4.5 mmol/L (3.5-5.1); Sodium 142 mmol/L (136-145); Total Protein 7.2 g/dL (6.4-8.2)
[2021-11-14 14:00] LABS: Bacteria Rare HPF (Negative); C & S Indicated? No; Casts Negative LPF (Negative); Crystals Negative HPF (Negative); Epithelial Cells Rare HPF (Negative); Mucus Heavy (Negative); WBC 0-2 HPF (0-5)
== END 2021-11-14 02:28 | disposition home or self-care (01) ==
PROVIDERS: PCP Internal Medicine; Visit Provider Internal Medicine Hematology & Oncology
DX: C34.11 Malignant neoplasm of upper lobe, right bronchus or lung (principal); R30.0 Dysuria
CPT/HCPCS: 36415; 80053; 81003; 81015; 85025

== ENCOUNTER 2021-11-29 13:05 | Outpatient (CLI) | payer MEDICARE, MEDICAID, SELFPAY ==
[2021-11-29 09:30] LABS: Abs Immature Grans 0.08 10^3/uL (0.0-0.06); Absolute Basophil Count 0.04 10^3/uL (0.0-0.2); Absolute Eosinophil Count 0.13 10^3/uL (0.0-0.7); Absolute Lymphocyte Count 1.47 10^3/uL (1.2-3.4); Absolute Monocyte Count 0.95 10^3/uL (0.1-0.8); Absolute Neutrophil Count 5.46 10^3/uL (1.2-6.7); Basophils % 0.5; Eosinophils % 1.6; HCT 40.8 % (40.0-50.0); HGB 12.6 g/dL (13.5-17.5); Lymphocytes % 18.1; MCH 26.6 pg (27.0-33.0); MCHC 30.9 % (32.0-36.0); MCV 86.1 fL (80-95); MPV 8.6 fL (8.0-11.0); Monocytes % 11.7; Neutrophils % 67.1; Nucleated RBC 0 %; Platelet Count 561 10^3/uL (130-400); RBC 4.74 10^6/uL (4.36-5.78); RDW 16.6 % (11.8-14.1); WBC 8.13 10^3/uL (4.4-10.8)
[2021-11-29 09:32] LABS: Bilirubin Negative (Negative); Blood Negative (Negative); Clarity Clear (Clear); Glucose Negative (Negative); Ketones Negative (Negative); Leukocyte Esterase Negative (Negative); Nitrite Negative (Negative); Specific Gravity >= 1.030 (1.005-1.025); Urobilinogen 0.2 EU/dL (Up TO 0.2); pH 6.5 (5-8)
[2021-11-29 09:43] LABS: ALT 26 U/L (16-63); AST 20 U/L (15-37); Alkaline Phosphatase 118 U/L (46-116); Anion Gap 7.6 mmol/L (3-11); BUN 21 mg/dL (7-18); Bilirubin, Total 0.2 mg/dL (0.2-1.0); CO2 30.4 mmol/L (21.0-32.0); CREATININE 1.1 mg/dL (0.70-1.30); Calcium 8.9 mg/dL (8.5-10.1); Chloride 100 mmol/L (98-107); Glucose 104 mg/dL (74-106); Potassium 4.8 mmol/L (3.5-5.1); Sodium 138 mmol/L (136-145); Total Protein 7.3 g/dL (6.4-8.2)
== END 2021-11-29 13:06 | disposition home or self-care (01) ==
LOC: LBO 13:08
PROVIDERS: PCP Internal Medicine; Visit Provider Internal Medicine Medical Oncology
DX: C34.11 Malignant neoplasm of upper lobe, right bronchus or lung (principal); R30.0 Dysuria
CPT/HCPCS: 36415; 80053; 81003; 85025

== ENCOUNTER 2021-12-04 16:13 | Outpatient (CLI) | payer MEDICARE, MEDICAID, SELFPAY ==
[2021-12-04 11:34] LABS: Abs Immature Grans 0.02 10^3/uL (0.0-0.06); Absolute Basophil Count 0.04 10^3/uL (0.0-0.2); Absolute Eosinophil Count 0.05 10^3/uL (0.0-0.7); Absolute Lymphocyte Count 1.78 10^3/uL (1.2-3.4); Absolute Monocyte Count 0.22 10^3/uL (0.1-0.8); Absolute Neutrophil Count 6.17 10^3/uL (1.2-6.7); Basophils % 0.5; Eosinophils % 0.6; HCT 38.8 % (40.0-50.0); HGB 12.1 g/dL (13.5-17.5); Immature Grans % 0.2; Lymphocytes % 21.5; MCH 26.5 pg (27.0-33.0); MCHC 31.2 % (32.0-36.0); MCV 85.1 fL (80-95); MPV 8.7 fL (8.0-11.0); Monocytes % 2.7; Neutrophils % 74.5; Nucleated RBC 0 %; Platelet Count 484 10^3/uL (130-400); RBC 4.56 10^6/uL (4.36-5.78); RDW 16.7 % (11.8-14.1); WBC 8.28 10^3/uL (4.4-10.8)
[2021-12-04 11:52] LABS: ALT 36 U/L (16-63); AST 27 U/L (15-37); Albumin 3.2 g/dL (3.4-5.0); Alkaline Phosphatase 114 U/L (46-116); Anion Gap 7.7 mmol/L (3-11); BUN 22 mg/dL (7-18); Bilirubin, Total 0.3 mg/dL (0.2-1.0); CO2 29.3 mmol/L (21.0-32.0); CREATININE 1.1 mg/dL (0.70-1.30); Calcium 8.9 mg/dL (8.5-10.1); Chloride 101 mmol/L (98-107); Glucose 98 mg/dL (74-106); Potassium 4.1 mmol/L (3.5-5.1); Sodium 138 mmol/L (136-145); Total Protein 7.5 g/dL (6.4-8.2)
== END 2021-12-04 16:14 | disposition home or self-care (01) ==
PROVIDERS: PCP Internal Medicine; Visit Provider Internal Medicine Hematology & Oncology
DX: C34.11 Malignant neoplasm of upper lobe, right bronchus or lung (principal)
CPT/HCPCS: 36415; 80053; 81003; 85025

== ENCOUNTER 2021-12-20 02:20 | Outpatient (CLI) | payer MEDICARE, SELFPAY ==
[2021-12-20 11:02] LABS: Abs Immature Grans 0.04 10^3/uL (0.0-0.06); Absolute Basophil Count 0.04 10^3/uL (0.0-0.2); Absolute Eosinophil Count 0.15 10^3/uL (0.0-0.7); Absolute Lymphocyte Count 1.43 10^3/uL (1.2-3.4); Absolute Monocyte Count 0.76 10^3/uL (0.1-0.8); Absolute Neutrophil Count 6.65 10^3/uL (1.2-6.7); Basophils % 0.4; Eosinophils % 1.7; HCT 40.7 % (40.0-50.0); HGB 12.6 g/dL (13.5-17.5); Immature Grans % 0.4; Lymphocytes % 15.8; MCH 26.9 pg (27.0-33.0); MCV 86.8 fL (80-95); MPV 8.5 fL (8.0-11.0); Monocytes % 8.4; Neutrophils % 73.3; Nucleated RBC 0 %; Platelet Count 511 10^3/uL (130-400); RBC 4.69 10^6/uL (4.36-5.78); RDW 18.2 % (11.8-14.1); RDW-SD 54.5 fL; WBC 9.07 10^3/uL (4.4-10.8)
[2021-12-20 11:45] LABS: ALT 21 U/L (16-63); AST 19 U/L (15-37); Albumin 3.2 g/dL (3.4-5.0); Alkaline Phosphatase 118 U/L (46-116); Anion Gap 4.7 mmol/L (3-11); BUN 19 mg/dL (7-18); Bilirubin, Total 0.2 mg/dL (0.2-1.0); CO2 31.3 mmol/L (21.0-32.0); Calcium 9.1 mg/dL (8.5-10.1); Chloride 102 mmol/L (98-107); Glucose 96 mg/dL (74-106); Potassium 4.7 mmol/L (3.5-5.1); Sodium 138 mmol/L (136-145); Total Protein 7.5 g/dL (6.4-8.2)
== END 2021-12-20 02:21 | disposition home or self-care (01) ==
LOC: LBO 02:21
PROVIDERS: PCP Internal Medicine; Visit Provider Internal Medicine Hematology & Oncology
DX: R30.0 Dysuria (principal)
CPT/HCPCS: 36415; 80053; 85025

== ENCOUNTER 2021-12-27 01:49 | Outpatient (CLI) | payer MEDICARE, SELFPAY | END 2021-12-27 01:50 | disposition home or self-care (01) | LOC: LBO 01:49 | PROVIDERS: PCP Internal Medicine; Visit Provider Internal Medicine Medical Oncology ==

== ENCOUNTER 2022-01-08 04:16 | Outpatient (CLI) | payer MEDICARE, SELFPAY ==
[2022-01-08 12:34] LABS: Abs Immature Grans 0.06 10^3/uL (0.0-0.06); Absolute Basophil Count 0.05 10^3/uL (0.0-0.2); Absolute Eosinophil Count 0.31 10^3/uL (0.0-0.7); Absolute Lymphocyte Count 1.81 10^3/uL (1.2-3.4); Absolute Monocyte Count 0.91 10^3/uL (0.1-0.8); Basophils % 0.6; Eosinophils % 3.6; HCT 41.1 % (40.0-50.0); HGB 12.9 g/dL (13.5-17.5); Immature Grans % 0.7; Lymphocytes % 21.2; MCH 27.3 pg (27.0-33.0); MCHC 31.4 % (32.0-36.0); MCV 86.9 fL (80-95); MPV 10.2 fL (8.0-11.0); Monocytes % 10.7; Neutrophils % 63.2; Nucleated RBC 0 %; Platelet Count 241 10^3/uL (130-400); RBC 4.73 10^6/uL (4.36-5.78); RDW 20.3 % (11.8-14.1); RDW-SD 62.6 fL; WBC 8.54 10^3/uL (4.4-10.8)
[2022-01-08 12:53] LABS: Anisocytosis 2+; Diff Comment RBC Morph Reviewed
[2022-01-08 13:01] LABS: ALT 30 U/L (16-63); AST 21 U/L (15-37); Albumin 3.2 g/dL (3.4-5.0); Alkaline Phosphatase 98 U/L (46-116); Anion Gap 8.5 mmol/L (3-11); BUN 22 mg/dL (7-18); Bilirubin, Total 0.3 mg/dL (0.2-1.0); CO2 28.5 mmol/L (21.0-32.0); Calcium 8.9 mg/dL (8.5-10.1); Chloride 104 mmol/L (98-107); Glucose 128 mg/dL (74-106); Potassium 4.3 mmol/L (3.5-5.1); Sodium 141 mmol/L (136-145); Total Protein 7.2 g/dL (6.4-8.2)
== END 2022-01-08 04:17 | disposition home or self-care (01) ==
PROVIDERS: PCP Internal Medicine; Visit Provider Internal Medicine Hematology & Oncology
DX: C34.11 Malignant neoplasm of upper lobe, right bronchus or lung (principal); R30.0 Dysuria
CPT/HCPCS: 36415; 80053; 85025

== ENCOUNTER 2022-01-15 02:13 | Outpatient (CLI) | payer MEDICARE, SELFPAY ==
[2022-01-15 13:15] LABS: Abs Immature Grans 0.06 10^3/uL (0.0-0.06); Absolute Basophil Count 0.03 10^3/uL (0.0-0.2); Absolute Eosinophil Count 0.18 10^3/uL (0.0-0.7); Absolute Lymphocyte Count 1.54 10^3/uL (1.2-3.4); Absolute Monocyte Count 0.61 10^3/uL (0.1-0.8); Basophils % 0.4; Eosinophils % 2.5; HCT 37.8 % (40.0-50.0); Immature Grans % 0.8; Lymphocytes % 21.3; MCHC 31.7 % (32.0-36.0); MCV 88.1 fL (80-95); MPV 9.7 fL (8.0-11.0); Monocytes % 8.4; Neutrophils % 66.6; Nucleated RBC 0 %; Platelet Count 234 10^3/uL (130-400); RBC 4.29 10^6/uL (4.36-5.78); RDW 20.2 % (11.8-14.1); WBC 7.22 10^3/uL (4.4-10.8)
[2022-01-15 13:34] LABS: ALT 36 U/L (16-63); AST 25 U/L (15-37); Albumin 3.2 g/dL (3.4-5.0); Alkaline Phosphatase 102 U/L (46-116); Anion Gap 5.7 mmol/L (3-11); BUN 17 mg/dL (7-18); Bilirubin, Total 0.4 mg/dL (0.2-1.0); CO2 30.3 mmol/L (21.0-32.0); CREATININE 0.9 mg/dL (0.70-1.30); Calcium 8.6 mg/dL (8.5-10.1); Chloride 100 mmol/L (98-107); Glucose 97 mg/dL (74-106); Potassium 4.4 mmol/L (3.5-5.1); Sodium 136 mmol/L (136-145); Total Protein 7.1 g/dL (6.4-8.2)
[2022-01-15 13:38] LABS: Anisocytosis 2+; Diff Comment RBC Morph Reviewed
== END 2022-01-15 02:14 | disposition home or self-care (01) ==
LOC: LBO 02:13
PROVIDERS: Internal Medicine Hematology & Oncology; PCP Internal Medicine; Visit Provider Internal Medicine Medical Oncology
DX: C34.11 Malignant neoplasm of upper lobe, right bronchus or lung (principal); R30.0 Dysuria
CPT/HCPCS: 36415; 80053; 85025

== ENCOUNTER 2022-01-29 03:32 | Outpatient (CLI) | payer MEDICARE, SELFPAY ==
[2022-01-29 11:00] LABS: Abs Immature Grans 0.01 10^3/uL (0.0-0.06); Absolute Basophil Count 0.04 10^3/uL (0.0-0.2); Absolute Eosinophil Count 0.07 10^3/uL (0.0-0.7); Absolute Lymphocyte Count 0.98 10^3/uL (1.2-3.4); Absolute Monocyte Count 0.65 10^3/uL (0.1-0.8); Absolute Neutrophil Count 3.08 10^3/uL (1.2-6.7); Basophils % 0.8; Eosinophils % 1.4; HCT 36.5 % (40.0-50.0); HGB 11.5 g/dL (13.5-17.5); Immature Grans % 0.2; Lymphocytes % 20.3; MCH 27.8 pg (27.0-33.0); MCHC 31.5 % (32.0-36.0); MCV 88.2 fL (80-95); MPV 9.1 fL (8.0-11.0); Monocytes % 13.5; Neutrophils % 63.8; Nucleated RBC 0 %; Platelet Count 194 10^3/uL (130-400); RBC 4.14 10^6/uL (4.36-5.78); RDW 19.6 % (11.8-14.1); RDW-SD 63.1 fL; WBC 4.83 10^3/uL (4.4-10.8)
[2022-01-29 11:15] LABS: ALT 31 U/L (16-63); AST 24 U/L (15-37); Albumin 3.2 g/dL (3.4-5.0); Alkaline Phosphatase 100 U/L (46-116); Anion Gap 7.3 mmol/L (3-11); BUN 22 mg/dL (7-18); Bilirubin, Total 0.5 mg/dL (0.2-1.0); CO2 28.7 mmol/L (21.0-32.0); CREATININE 1.1 mg/dL (0.70-1.30); Calcium 8.5 mg/dL (8.5-10.1); Chloride 103 mmol/L (98-107); Glucose 87 mg/dL (74-106); Potassium 4.1 mmol/L (3.5-5.1); Sodium 139 mmol/L (136-145); Total Protein 6.8 g/dL (6.4-8.2)
== END 2022-01-29 03:33 | disposition home or self-care (01) ==
PROVIDERS: PCP Internal Medicine; Visit Provider Internal Medicine Hematology & Oncology
DX: C34.11 Malignant neoplasm of upper lobe, right bronchus or lung (principal)
CPT/HCPCS: 36415; 80053; 85025

== ENCOUNTER → 2022-02-22 01:47 | Outpatient (CLI) | payer MEDICARE, MEDICAID, SELFPAY ==
--- NOTE | 2022-02-22 13:15 | DI.CT_ITS ---
Exam(s) CT CHEST W EXAM: CT CHEST W CLINICAL HISTORY: RT LOBE LUNG CANCER C34.11 RESTAGING. TECHNIQUE: Multi planar reconstructions were performed. CONTRAST MATERIAL: Omnipaque 350; 70 cc COMPARISON: CT CT CHEST W from 07/28/2021 FINDINGS: CHEST: LUNGS: Stable scarring/mass right upper lobe again noted. Previously described 7 millimeter nodular density all along the minor fissure presently measures 8 millimeter. This may be related to technica l factors as opposed to true growth. The previously described 5 millimeter nodule in the right lower lobe appears unchanged. No new right lung nodules nor pleural effusions. No new obvious focal left lung nodules. No pleural effusions on either side. No new focal findings in the trachea and mainst em bronchi. MEDIASTINUM: There is no hilar nor mediastinal adenopathy. Visualized thyroid unremarkable.Distal tip of the right supra clavi in Port-A-Cath is in the lower SVC. CARDIAC: Heart size is normal. There is no pericardial effusion.Ascending thoracic aorta diameter ag ain noted be somewhat prominent, measuring 4.3 cm VISUALIZED UPPER ABDOMEN:There are now concerning lesions in the liver suspicious for metastatic dise ase, not previously present. Largest of these measures 3.5 cm. There is also a new metastatic nodul e in the left adrenal gland 1.4 by 1.3 cm. No new findings in the right adrenal gland. Spleen size is normal. No intrasplenic lesions. OSSEOUS: No significant osseous lesions.. IMPRESSION: 1. Lower most images of this chest study reveal concerning new metastatic appearing lesions in the li joni and left adrenal gland, as described above.. 2. Relatively stable lung findings. One of the right lung nodules appears of slightly increased in s ize by approximately 1 millimeter. This, however, may be related to technical factors more so than a ctual true growth of nodule. No new left lung findings. No pleural effusions and no new intrathorac ic adenopathy. 3. No lytic osseous lesions evident. RADIATION DOSE DELIVERED: 423.94mGy.cm Total DLP DATA REPOSITORY: All CT scans at this facility are submitted to the National Radiology Data Registry (NRDR) Dose Index Registry (DIR) with the [employer] (ACR). RADIATION OPTIMIZATION: All CT scans at this facility use at least one of these dose optimization te chniques: automated exposure control; mA and/or kV adjustment per patient size (includes targeted exa ms where dose is matched to clinical indication); or iterative reconstruction.
[2022-02-22] MEDS: Omnipaque 350 MG/ML 100 ML BTL 70 ML IJ (13:23)
== END ==
PROVIDERS: PCP Internal Medicine; Visit Provider Internal Medicine Medical Oncology
DX: C34.11 Malignant neoplasm of upper lobe, right bronchus or lung (principal); C78.7 Secondary malignant neoplasm of liver and intrahepatic bile duct; C79.72 Secondary malignant neoplasm of left adrenal gland
CPT/HCPCS: 36415; 80053; 71260; 83735; 84439; 84443; 85025; J3490

== ENCOUNTER 2022-02-22 01:56 | Outpatient (RCR) | payer MEDICARE, MEDICAID, SELFPAY ==
[2022-02-05] MEDS: Normal Saline Flush 10 ML SYR IVP (07:44)
[2022-02-05 08:07] LABS: Abs Immature Grans 0.05 10^3/uL (0.0-0.06); Absolute Basophil Count 0.04 10^3/uL (0.0-0.2); Absolute Eosinophil Count 0.07 10^3/uL (0.0-0.7); Absolute Lymphocyte Count 2.47 10^3/uL (1.2-3.4); Absolute Monocyte Count 0.31 10^3/uL (0.1-0.8); Absolute Neutrophil Count 3.09 10^3/uL (1.2-6.7); Basophils % 0.7; Eosinophils % 1.2; HCT 37.5 % (40.0-50.0); HGB 11.9 g/dL (13.5-17.5); Immature Grans % 0.8; MCH 27.8 pg (27.0-33.0); MCHC 31.7 % (32.0-36.0); MCV 87.6 fL (80-95); MPV 10.4 fL (8.0-11.0); Monocytes % 5.1; Neutrophils % 51.2; Nucleated RBC 0 %; Platelet Count 234 10^3/uL (130-400); RBC 4.28 10^6/uL (4.36-5.78); RDW-SD 57.4 fL; WBC 6.03 10^3/uL (4.4-10.8)
[2022-02-05 08:16] LABS: Bilirubin Negative (Negative); Blood Negative (Negative); Clarity Clear (Clear); Glucose Negative (Negative); Ketones Negative (Negative); Leukocyte Esterase Negative (Negative); Nitrite Negative (Negative); Specific Gravity 1.015 (1.005-1.025); Urobilinogen 0.2 EU/dL (Up TO 0.2); pH 5.5 (5-8)
[2022-02-05 08:31] LABS: ALT 37 U/L (16-63); AST 25 U/L (15-37); Albumin 3.3 g/dL (3.4-5.0); Alkaline Phosphatase 95 U/L (46-116); Anion Gap 7.5 mmol/L (3-11); BUN 26 mg/dL (7-18); Bilirubin, Total 0.5 mg/dL (0.2-1.0); CO2 28.5 mmol/L (21.0-32.0); CREATININE 0.9 mg/dL (0.70-1.30); Calcium 8.6 mg/dL (8.5-10.1); Chloride 103 mmol/L (98-107); FREE T4 0.94 ng/dL (0.76-1.46); Glucose 89 mg/dL (74-106); Magnesium 2.1 mg/dL (1.8-2.4); Potassium 3.6 mmol/L (3.5-5.1); Sodium 139 mmol/L (136-145); TSH 3.67 uIU/mL (0.36-3.74); Total Protein 7.2 g/dL (6.4-8.2)
[2022-02-22] MEDS: Normal Saline Flush 10 ML SYR IVP (12:36)
[2022-02-22] MEDS: Heparin 500 UNITS/5 ML SYRINGE IV (12:37)
[2022-02-22 12:53] LABS: Abs Immature Grans 0.03 10^3/uL (0.0-0.06); Absolute Basophil Count 0.05 10^3/uL (0.0-0.2); Absolute Eosinophil Count 0.04 10^3/uL (0.0-0.7); Absolute Lymphocyte Count 1.43 10^3/uL (1.2-3.4); Absolute Neutrophil Count 3.88 10^3/uL (1.2-6.7); Basophils % 0.8; Eosinophils % 0.6; HCT 40.1 % (40.0-50.0); HGB 12.4 g/dL (13.5-17.5); Immature Grans % 0.5; Lymphocytes % 22.6; MCH 27.9 pg (27.0-33.0); MCHC 30.9 % (32.0-36.0); MCV 90.1 fL (80-95); Monocytes % 14.2; Neutrophils % 61.3; Platelet Count 234 10^3/uL (130-400); RBC 4.45 10^6/uL (4.36-5.78); RDW 17.9 % (11.8-14.1); RDW-SD 57.8 fL; WBC 6.33 10^3/uL (4.4-10.8)
[2022-02-22 12:54] LABS: Bilirubin Negative (Negative); Blood Negative (Negative); Clarity Clear (Clear); Glucose Negative (Negative); Ketones Negative (Negative); Leukocyte Esterase Negative (Negative); Nitrite Negative (Negative); Specific Gravity 1.025 (1.005-1.025); Urobilinogen 0.2 EU/dL (Up TO 0.2); pH 5.5 (5-8)
[2022-02-22 13:16] LABS: ALT 32 U/L (16-63); AST 24 U/L (15-37); Albumin 3.2 g/dL (3.4-5.0); Alkaline Phosphatase 110 U/L (46-116); BUN 19 mg/dL (7-18); Bilirubin, Total 0.4 mg/dL (0.2-1.0); Calcium 8.5 mg/dL (8.5-10.1); Chloride 103 mmol/L (98-107); FREE T4 1.09 ng/dL (0.76-1.46); Glucose 110 mg/dL (74-106); Magnesium 2.2 mg/dL (1.8-2.4); Potassium 4.3 mmol/L (3.5-5.1); Sodium 137 mmol/L (136-145); TSH 2.14 uIU/mL (0.36-3.74); Total Protein 7.2 g/dL (6.4-8.2)
== END 2022-03-03 23:59 | disposition home or self-care (01) ==
LOC: INF 01:56
PROVIDERS: PCP Internal Medicine; Visit Provider Internal Medicine Medical Oncology
DX: Z45.2 Encounter for adjustment and management of vascular access device (principal); C34.11 Malignant neoplasm of upper lobe, right bronchus or lung; F32.0 Major depressive disorder, single episode, mild; C79.51 Secondary malignant neoplasm of bone; R30.0 Dysuria
CPT/HCPCS: 36591; 80053; 81003; 83735; 84439; 84443; 85025

== ENCOUNTER → 2022-03-09 01:42 | Outpatient (CLI) | payer MEDICARE, MEDICAID, SELFPAY ==
--- NOTE | 2022-03-09 | DI.CT_ITS ---
Exam(s) CT NECK W EXAM: CT NECK W CLINICAL HISTORY: RT LUNG CA,C34.11,CERVICAL ADENOPATHY,R59.0. TECHNIQUE: Imaging Protocol: Axial CT angiography was performed with multi-slice acquisition and mu lti-planar and/or 3D reconstructions. CONTRAST MATERIAL: Intravenous: Omnipaque 350 Contrast volume:75 mL COMPARISON: CT CT CHEST W from 02/22/2022 FINDINGS: Visualized paranasal sinuses: There is a post inflammatory retention cyst in the floor of the right m axillary sinus. This measures 1.2 x 1.2 cm. No fluid level. No bone dehiscence. Opposite-left max illary sinus is clear. Nasopharynx: Unremarkable Oropharynx: No obvious abnormality. Uvula is midline. No evidence of tonsillar mass. Mandible is i ntact. Hypopharynx: Valleculae unremarkable. Free edge of the epiglottis unremarkable. Aryepiglottic folds unremarkable. No obvious mass at the level of vocal cords and subglottic airway. Thyroid gland: Normal size. No obvious nodules. Salivary glands: Parotid and submandibular glands appear unremarkable. Lymph nodes: And there is abnormal adenopathy in the right-side of the neck which is centrally hypode nse. This is interposed between the right carotid artery and the sternocleidomastoid muscle. These lymph nodes are matted and internally hypodense implying necrosis. Measure approximately 3.3 cm AP b y 1.8 cm wide by 4 cm craniocaudal. Similar adenopathy is not seen in the opposite-left side of the neck nor in either supraclavicular region Vascular: There is a right supra clavi in Port-A-Cath. The ipsilateral right internal jugular vein i s patent, as is the opposite-left internal jugular vein. Both common carotid arteries are patent. S ome calcified and noncalcified plaque is noted at the carotid bifurcation and proximal internal carot id arteries on both sides but there does not appear to be a critical stenosis at these levels. IMPRESSION: 1. The main finding here is abnormal matted and internally hypodense-necrotic lymphadenopathy in the right-side of the neck, as described above. There does not appear to be an obvious primary mass in t he kika and hypopharynx. RADIATION DOSE DELIVERED: 380.13mGy.cm Total DLP DATA REPOSITORY: All CT scans at this facility are submitted to the National Radiology Data Registry (NRDR) Dose Index Registry (DIR) with the [employer] (A[employer]). RADIATION OPTIMIZATION: All CT scans at this facility use at least one of these dose optimization te chniques: automated exposure control; mA and/or kV adjustment per patient size (includes targeted exa ms where dose is matched to clinical indication); or iterative reconstruction.
[2022-03-09] MEDS: Omnipaque 350 MG/ML 100 ML BTL IJ (14:22)
== END ==
PROVIDERS: PCP Internal Medicine; Visit Provider Internal Medicine Medical Oncology
DX: C34.11 Malignant neoplasm of upper lobe, right bronchus or lung (principal); R59.0 Localized enlarged lymph nodes
CPT/HCPCS: 70491; J3490

== ENCOUNTER 2022-03-26 02:32 | Outpatient (RCR) | payer MEDICARE, MEDICAID, SELFPAY ==
--- OUTSIDE RECORDS SUMMARY | 2022-03-05 01:25 | XMS_ITS ---
:1955 Author Care Team Providers Name Role Phone ORVILLE CHASE MD General Surgeon [phone] CARMINE ALMARAZ MD Primary Care Provider [phone] MAXIMINO KENDALL MD Urologist [phone] Allergies Code Code System Name Reaction Severity Status Onset NKDA ? Medications Name Status Start Date Stop Date ? ? acetaminophen 500 mg tablet Completed ? 03/2021 Take 2 tablets every 6 hours by oral route as needed. amitriptyline 25 mg tablet Completed ? 06/17 amoxicillin 875 mg-potassium clavulanate 125 mg tablet Completed ? 05/17/2021 TAKE 1 TABLET BY MOUTH TWICE DAILY FOR ACUTE OPIOID THERAPY DAY S Bactrim DS 800 mg-160 mg tablet Completed ? 05/17/2021 1 tab now Chantix 0.5 mg tablet Completed ? 11/08/2020 Take 1 tablet twice a day by oral route for 3 days. Chantix Continuing Month Box 1 mg tablet Active 021 Not available Take 1 tablet twice a day by oral route. Chantix Starting Month Box 0.5 mg Completed ? 11/08/2020 (11)-1 mg (42) tablets in dose pack Colace 100 mg capsule Active 11/08/2020 Not availa ble Take 2 capsules every day by oral route as needed. cyclobenzaprine 10 mg tablet Active ? Not available Take 1 tablet every day by oral route. fentanyl 100 mcg/hr transdermal patch Active 11/08/2020 Not available Apply 1 patch every 72 hours by transdermal route. fentanyl 25 mcg/hr transdermal patch Completed ? 05/17/2021 APPLY 1 PATCH EVERY 72 HOURS IF NEEDED fentanyl 50 mcg/hr transdermal patch Completed ? 05/17/2021 APPLY 1 PATCH TOPICALLY Q 72 HOURS fentanyl 75 mcg/hr transdermal patch Completed ? 05/17/2021 APPLY 1 PATCH TOPICALLY EVERY 72 HOURS DIRECTED fluoxetine 20 mg capsule Completed ? 021 fluoxetine 20 mg tablet Active 11/08/2020 Not avai lable Take 2 tablets every day by oral route. folic acid 1 mg tablet Completed ? TAKE 1 TABLET BY MOUTH EVERY DAY gabapentin 300 mg capsule Completed ? 2020 TAKE 1 CAPSULE BY MOUTH AT BEDTIME ON D AY 1 THEN 1 CAPSULE TWICE A DAY ON DAY 2 THEN 1 CAPSULES 3 TIMES A DAY hydroxyzine HCl 50 mg tablet Active ? Not available Take 1 tablet 4 times a day by oral route. iron Completed ? 11/08/2020 1 tab daily levothyroxine 100 mcg tablet Active ? Not available TAKE 1 TABLET BY MOUTH DAILY levothyroxine 88 mcg tablet Completed 11/08/202005/04 Take 1 tablet every day by oral route. lorazepam 0.5 mg tablet Completed ? 06/17/20 18 lorazepam 1 mg tablet Active 11/08/2020 Not availa ble Take 1 tablet twice a day by oral route as needed. mirtazapine 15 mg tablet Active ? Not bird ilable TAKE 1 TABLET BY MOUTH EVERY NIGHT AT BEDTIME naproxen 500 mg tablet Completed ? Narcan 4 mg/actuation nasal spray Completed ? 06/17/2018 nicotine (polacrilex) 4 mg gum Active ? N ot available USE 1 PIECE OF GUM BUCCALLED DIRECTED EVERY 1 TO 2 HOURS oxycodone 10 mg tablet Active 11/08/2020 Not avail able Take 1 tablet every 12 hours by oral route as needed. oxycodone 5 mg tablet Completed ? 06/17/2018 phenazopyridine 95 mg tablet Completed ? 2 tabs now prednisone 10 mg tablet Active ? Not avai lable prochlorperazine maleate 10 mg tablet Completed ? 05/17/2021 TK 1 T PO EVERY 6 HOURS NEEDED FOR NAUSEA AND VOMITING scopolamine 1 mg over 3 days transdermal patch Completed ? 05/17/2021 APPLY EVERY 72 HOURS NEEDED FOR ITCHING senna 8.6 mg tablet Active 11/08/2020 Not availabl e Take 2 tablets twice a day by oral route as needed. sertraline 100 mg tablet Completed ? 021 TK 1 T PO D sildenafil 50 mg tablet Active 11/08/2020 Not avai lable Take 1 tablet every day by oral route as needed. tamsulosin 0.4 mg capsule Completed ? 2020 TAKE 1 CAPSULE BY MOUTH DAILY Notes: med rec based on Dr. Kelly manriquez's list 11/07/20-mso Problems Name Status Onset Date Source ? Anemia Active 06/06/2018 ? Increased Frequency of Urination Active 06/06/2018 ? History of Male Erectile Disorder Active 06/06/2018 ? Hearing Loss Active 06/30/2018 ? Pneumonia Active 11/08/2020 ? Chronic Retention of Urine Active 11/08/2020 ? Pityriasis Versicolor Active ? History Adenocarcinoma of Lung Active ? ? Hypothyroidism Active ? ? Tobacco User Active ? History Depressive Disorder Active ? ? Mononeuritis of Upper Limb and Active ? H istory Mononeuritis Multiplex Chronic Tracheobronchitis Active ? Histor y Blood in Urine Active ? ? Benign Prostatic Hyperplasia Active ? ? Abscess of Buttock Active ? History Musculoskeletal Symptom Active ? History Tingling of Skin Active ? History Chest Pain Active ? History Closed Fracture Lumbar Vertebra Active ? History Pain of Left Shoulder Joint Active ? Hist ory Atherosclerosis of Coronary Artery Active ? History without Angina Pectoris Procedure by Method Unknown ? History Panic Disorder Active ? ? Procedures Date Name Performed by ? 06/30/2018 Colonoscopy Information not avai lable Notes: 2 small polyps, mild diverticu losis. ? Neck Surgery Information not avai lable Notes: Fracture repair 09/16/2018 XR, Esophagram [facility] (Internal) [address] [place], [place] [id number] (Work Place) 11/08/2020 XR, Chest, 2 View [facility] (Internal) [address] [place] [address] (Work Place) Results Lab Results Date Name Specimen Result Interpretation Description Value Range Status Address ? 09/04/2021 Urinalysis, Urine ? Color Yellow ? ? P _urology: Dipstick, clean [address] Med[address] po[address] Reflex Micro catch [facility] ? ? Urine ? Appearance Clear ? ? P[facility]uro logy: clean [facility] ? ? Urine ? Glucose Normal ? ? P[facility]urolog y: clean [facility] ? ? Urine ? Bilirubin Negative ? ? P_ur ology: clean [facility] ? ? Urine ? Ketones Negative ? ? P_urol ogy: clean [facility] ? ? Urine ? Specific 1.015 ? ? P_urolo gy: clean [place] 41 Medica Collexpo [facility] ? ? Urine ? Blood Trace ? ? P_urology: clean [facility] ? ? Urine ? Ph 5.5 ? ? P_urology: clean 41 Medical Wellbeats [facility] ? ? Urine ? Protein Negative ? ? P_urol ogy: clean 41 Medical Well[employer] [facility] ? ? Urine ? Urobilinog 0.2 ? ? P_uro logy: clean en 41 Clean Runner [facility] ? ? Urine ? Nitrite negative ? ? P_urol ogy: clean 41 [address] [employer] [facility] ? ? Urine ? Leukocyte Negative ? ? P_ur ology: clean Esterase 41 [facility] al Wellbeats [facility] 06/02/2021 Bladder Scan ? Date and 06/02/21 ? ? P_urology: (PROC) Time 14:57 [facility] ? ? ? Amount in 3 ml ? ? P_urol ogy: Bladder 41 [facility] 06/02/2021 Urinalysis, Urine ? Color Denae ? ? P _urology: Dipstick, clean 41 Medi poppy Reflex Micro catch [facility] [place], [place] ? ? Urine ? Appearance Cloudy ? ? P_uro logy: clean 41 Medical [employer] [facility] ? ? Urine ? Glucose Normal ? ? P_urolog y: clean 41 Clean Runner [facility] ? ? Urine ? Bilirubin Negative ? ? P_ur ology: clean 41 Medical [employer] [facility] ? ? Urine ? Ketones Negative ? ? P_urol ogy: clean 41 Clean Runner [facility] ? ? Urine ? Specific 1.025 ? ? P_urolo gy: clean [place] 41 [facility] Collexpo [facility] ? ? Urine ? Blood Large ? ? P_urology: clean 41 Clean Runner [facility] ? ? Urine ? Ph 5.0 ? ? P_urology: clean 41 Medical Well[employer] [facility] ? ? Urine ? Protein 3+ ? ? P_urolog y: clean 41 Medical Well[employer] [facility] ? ? Urine ? Urobilinog 0.2 ? ? P_uro logy: clean en 41 [facility] ? ? Urine ? Nitrite negative ? ? P_urol ogy: clean 41 Medical Well[employer] [facility] ? ? Urine ? Leukocyte Small ? ? P_urol ogy: clean Esterase 41 Medic al Well[employer] [facility] 05/25/2021 Pathology TISS ? Report (see below) ? Rosalba l [facility] Hospital Lab (Internal) : [address] 05/15/2021 Cytology, TISS ? Non-oil well engineer results ? Final [place] Non-gynecolo interfaced [place] into [facility] Unspecified Lab Specimen (Interna l): [address] ? ? TISS ? Report (see below) ? Final [facility] Lab (Internal) : [address] 05/15/2021 Bladder Scan ? Date and 05/15/21 ? ? P_urology: (PROC) Time 14:51 41 [facility] ? ? ? Amount in 2 ml ? ? P_urol ogy: Bladder 41 [facility] 05/15/2021 Urinalysis, Urine ? Color Denae ? ? P _urology: Dipstick, clean 41 Medi poppy Reflex Micro catch [facility] ? ? Urine ? Appearance Clear ? ? P_uro logy: clean 41 Medical [employer] [facility] ? ? Urine ? Glucose Normal ? ? P_urolog y: clean 41 Medical [employer] [facility] ? ? Urine ? Bilirubin Negative ? ? P_ur ology: clean 41 Clean Runner [facility] ? ? Urine ? Ketones Negative ? ? P_urol ogy: clean 41 Medical [employer] [facility] ? ? Urine ? Specific 1.025 ? ? P_urolo gy: clean [place] [facility] Col[facility] ? ? Urine ? Blood Large ? ? P_urology: clean 41 [employer]ner [facility] ? ? Urine ? Ph 5.0 ? ? P_urology: clean 41 [employer] [facility] ? ? Urine ? Protein Negative ? ? P_urol ogy: clean 41 Medical Well[employer] [facility] ? ? Urine ? Urobilinog 0.2 ? ? P_uro logy: clean en 41 Clean Runner [facility] ? ? Urine ? Nitrite negative ? ? P_urol ogy: clean 41 Medical catch [facility] ? ? Urine ? Leukocyte Negative ? ? P_ur ology: clean Esterase 41 Medic al catch [facility] 11/08/2020 Cbc BLD High Wbc 10.3 10*3/uL 5.0-10. Final [place] 0 [place] 10*3/uL Hospital Lab (Internal) : [address] ? ? BLD Low Rbc 3.82 10*6/uL 4.60-6. Final [place] 00 [place] 10*6/uL Hospital Lab (Internal) : [address] ? ? BLD Low Hgb 11.2 g/dL 14.0-18 Final [place] .0 g/dL [place] Hospital Lab (Internal) : [address] ? ? BLD Low Hct 36.4 % 41.0-51 Final [place] .0 % [place] Hospital Lab (Internal) : [address] ? ? BLD ? Mcv 95.3 fL 80.0-96 Final [place] .0 fL [place] Hospital Lab (Internal) : [address] ? ? BLD ? Mch 29.3 pg 26.0-32 Final [place] .0 pg [place] Hospital Lab (Internal) : [address] ? ? BLD Low Mchc 30.8 g/dL 31.0-35 Final [place] .0 g/dL [place] Hospital Lab (Internal) : [address] ? ? BLD ? Rdw 13.6 % 11.5-14 Final [place] .5 % [place] Hospital Lab (Internal) : [address] ? ? BLD ? Plt 173 10*3/uL 130-450 Final Nort h 10*3/uL [place] Hospital Lab (Internal) : [address] ? ? BLD ? Anc 6.93 10*3/uL ? Final Nort h [facility] Hospital Lab (Internal) : [address] t 11/08/2020 BMP, Serum S ? g/r 85 mg/dL 74-106 Final [place] or Plasma mg/dL [place] Hospital Lab (Internal) : [address] t ? ? S ? Bun 11 mg/dL 9-20 Final [place] mg/dL [facility] Hospital Lab (Internal) : [address] ? ? S ? Crea 1.00 mg/dL 0.66-1. Final [place] 25 [place] mg/dL Hospital Lab (Internal) : [address] ? ? S Low Ca 8.0 mg/dL 8.4-10. Final [place] 2 mg/dL [place] Hospital Lab (Internal) : [address] ? ? S ? Na 141 mmol/L 137-145 Final [place] mmol/L [facility] Hospital Lab (Internal) : [address] ? ? S ? K 3.8 mmol/L 3.5-5.1 Final [place] mmol/L [facility] Hospital Lab (Internal) : [address] ? ? S High Cl 108 mmol/L 98-107 Final [place] mmol/L [facility] Hospital Lab (Internal) : [address] ? ? S High Tco2 32.0 mmol/L 22.0-30 Final Nort h .0 [place] mmol/L Hospital Lab (Internal) : [address] 11/07/2020 Cbc BLD High Wbc 11.9 10*3/uL 5.0-10. Final [place] 0 [place] 10*3/uL Hospital Lab (Internal) : [address] ? ? BLD Low Rbc 3.75 10*6/uL 4.60-6. Final [place] 00 [place] 10*6/uL Hospital Lab (Internal) : [address] ? ? BLD Low Hgb 10.9 g/dL 14.0-18 Final [place] .0 g/dL [facility] Hospital Lab (Internal) : [address] ? ? BLD Low Hct 36.4 % 41.0-51 Final [place] .0 % [place] Hospital Lab (Internal) : [address] ? ? BLD High Mcv 97.1 fL 80.0-96 Final [place] .0 fL [facility] Hospital Lab (Internal) : [address] ? ? BLD ? Mch 29.1 pg 26.0-32 Final [place] .0 pg [facility] Hospital Lab (Internal) : [address] ? ? BLD Low Mchc 29.9 g/dL 31.0-35 Final [place] .0 g/dL [facility] Hospital Lab (Internal) : [address] ? ? BLD ? Rdw 13.8 % 11.5-14 Final [place] .5 % [facility] Hospital Lab (Internal) : [address] ? ? BLD ? Plt 160 10*3/uL 130-450 Final Nort h 10*3/uL [facility] Hospital Lab (Internal) : [address] ? ? BLD ? Anc 9.35 10*3/uL ? Final Nort h [facility] Hospital Lab (Internal) : [address] 11/07/2020 BMP, Serum S High g/r 108 mg/dL 74-106 Final [place] or Plasma mg/dL [facility] Hospital Lab (Internal) : [address] ? ? S ? Bun 13 mg/dL 9-20 Final [place] mg/dL [facility] Hospital Lab (Internal) : [address] t ? ? S ? Crea 0.90 mg/dL 0.66-1. Final [place] 25 [place] mg/dL Hospital Lab (Internal) : [address] ? ? S Low Ca 7.9 mg/dL 8.4-10. Final [place] 2 mg/dL [facility] Hospital Lab (Internal) : [address] t ? ? S ? Na 141 mmol/L 137-145 Final [place] mmol/L [facility] Hospital Lab (Internal) : [address] ? ? S ? K 3.7 mmol/L 3.5-5.1 Final [place] mmol/L [facility] Hospital Lab (Internal) : [address] ? ? S ? Cl 106 mmol/L 98-107 Final [place] mmol/L [facility] Hospital Lab (Internal) : [address] ? ? S High Tco2 31.0 mmol/L 22.0-30 Final Nort h .0 [place] mmol/L Hospital Lab (Internal) : [address] 11/07/2020 Troponin I, S ? Trop <0.06 NG/mL 0.00-0. Fi nal [place] Serum or 06 [place] Plasma NG/mL Hospital Lab (Internal) : [address] 11/07/2020 Thyroid S ? Tsh 0.68 0.47-4. Final Nort h [place], u[IU]/mL 68 Countr y Serum u[IU]/m Hospital L Lab (Internal) : [address] 11/06/2020 Culture, BLD ? Final microbiology ? Final [place] Blood 2 results [facility] Hospital Lab (Internal) : [address] 11/06/2020 Culture, BLD ? Final microbiology ? Final [place] Blood 1 results [facility] Lab (Internal) : [address] 11/06/2020 CBC W/ Auto BLD High Wbc 12.9 10*3/uL 5.0-10. F inal [place] Diff 0 [place] 10*3/uL Hospital Lab (Internal) : [address] ? ? BLD ? Rbc 4.65 10*6/uL 4.60-6. Final [place] 00 [place] 10*6/uL Hospital Lab (Internal) : [address] ? ? BLD Low Hgb 13.7 g/dL 14.0-18 Final [place] .0 g/dL [facility] Hospital Lab (Internal) : [address] ? ? BLD ? Hct 43.6 % 41.0-51 Final [place] .0 % [facility] Hospital Lab (Internal) : [address] ? ? BLD ? Mcv 93.8 fL 80.0-96 Final [place] .0 fL [facility] Lab (Internal) : [address] ? ? BLD ? Mch 29.5 pg 26.0-32 Final [place] .0 pg [facility] Hospital Lab (Internal) : [address] ? ? BLD ? Mchc 31.4 g/dL 31.0-35 Final [place] .0 g/dL [facility] Hospital Lab (Internal) : [address] ? ? BLD ? Rdw 13.7 % 11.5-14 Final [place] .5 % [facility] Hospital Lab (Internal) : [address] ? ? BLD ? Plt 202 10*3/uL 130-450 Final Nort h 10*3/uL [facility] Hospital Lab (Internal) : [address] 11/06/2020 Lactic Acid, S ? La 1.8 mmol/L 0.7-2.1 Fi nal [place] Blood mmol/L [facility] Hospital Lab (Internal) : [address] t 11/06/2020 CMP, Serum S High g/r 128 mg/dL 74-106 Final [place] or Plasma mg/dL [facility] Hospital Lab (Internal) : [address] t ? ? S ? Bun 19 mg/dL 9-20 Final [place] mg/dL [facility] Hospital Lab (Internal) : [address] ? ? S ? Crea 1.00 mg/dL 0.66-1. Final [place] 25 [place] mg/dL Hospital Lab (Internal) : [address] ? ? S ? Ca 9.3 mg/dL 8.4-10. Final [place] 2 mg/dL [facility] Hospital Lab (Internal) : [address] t ? ? S ? Na 139 mmol/L 137-145 Final [place] mmol/L [facility] Hospital Lab (Internal) : [address] ? ? S ? K 4.0 mmol/L 3.5-5.1 Final [place] mmol/L [facility] Hospital Lab (Internal) : [address] t ? ? S ? Cl 100 mmol/L 98-107 Final [place] mmol/L [facility] Hospital Lab (Internal) : [address] ? ? S High Tco2 31.0 mmol/L 22.0-30 Final Nort h .0 [place] mmol/L Hospital Lab (Internal) : [address] ? ? S ? Tp 7.6 g/dL 6.3-8.2 Final [place] g/dL [facility] Hospital Lab (Internal) : [address] ? ? S ? Alb 4.0 g/dL 3.5-5.0 Final [place] g/dL [facility] Hospital Lab (Internal) : [address] ? ? S ? Tbil 0.5 mg/dL 0.2-1.3 Final [place] mg/dL [facility] Hospital Lab (Internal) : [address] t ? ? S ? Alp 113 U/L 38-126 Final [place] U/L [facility] Hospital Lab (Internal) : [address] ? ? S ? Alt (Sgpt) 22 U/L 21-72 Final [place] U/L [facility] Hospital Lab (Internal) : [address] ? ? S ? Ast (Sgot) 31 U/L 17-59 Final [place] U/L [facility] Hospital Lab (Internal) : [address] t 11/06/2020 Differential BLD High Polys 92 % 40-75 % Final [facility], [facility] Blood Hospital Lab (Internal) : [address] ? ? BLD ? Bands 4 % 0-5 % Final [facility] Hospital Lab (Internal) : [address] ? ? BLD Low Lymphs 0 % 20-50 % Final [facility] Lab (Internal) : [address] ? ? BLD ? [place] 4 % 2-10 % Final [facility] Lab (Internal) : [address] ? ? BLD ? Eos 0 % 0-6 % Final [facility] Lab (Internal) : [address] ? ? BLD ? Baso 0 % 0-1 % Final [facility] Lab (Internal) : [address] ? ? BLD ? Atyp Lymph 0 % ? Final [facility] Lab (Internal) : [address] ? ? BLD ? Plts, Est. adequate adequat Final No rth e [facility] Hospital Lab (Internal) : [address] ? ? BLD ? RBC normal normal Final [facility] Countr Hospital Lab (Internal) : [address] 11/06/2020 Neutrophil BLD ? Anc-manual 12.39 ? Rosalba [place] Count, 10*3/uL [facility] ([facility] Blood Lab (Internal) : [address] t 11/06/2020 Nlr-manual BLD ? Nlr - 0.00 unable 0.00-3. Fin al [place] Manual RO calculate 20 Coun try due to Hospital absence of Lab lymphocytes (Inte rnal): [address] t 11/06/2020 Procalcitoni High Pct 0.56 NG/mL 0.00-0. Fi nal [place] n, Serum 50 Country NG/mL Hospital Lab (Internal) : [address] 11/06/2020 Respiratory FLUID ? Final microbiology ? Fi [facility] Virus Panel results Coun [facility] Hospital Lab (Internal) : [address] 11/06/2020 Troponin I, S ? Trop <0.06 NG/mL 0.00-0. Fi nal [place] Serum or 06 [facility] Plasma NG/mL Hospital Lab (Internal) : [address] 11/06/2020 Urinalysis, UR ? UA-color yellow pale Final [place] Dipstick, yellow [place] Reflex Micro Hosp ital Lab (Internal) : [address] ? ? UR ? UA-appear clear clear Final [facility] Lab (Internal) : [address] ? ? UR ? UA-spec 1.010 1.003-1 [facility] Grav .035 [facility] Lab (Internal) : [address] ? ? UR ? UA-pH 5.5 [pH] 4.6-8.0 Final [place] [pH] [facility] Lab (Internal) : [address] t ? ? UR ? UA-leuk negative negativ Final [facility] Lab (Internal) : [address] ? ? UR ? UA-nitrite negative negativ Final [facility] Lab (Internal) : [address] ? ? UR ? UA-prot negative negativ Final [facility] Lab (Internal) : [address] ? ? UR ? UA-gluc negative negativ Final [facility] Lab (Internal) : [address] ? ? UR ? UA-ketone negative negativ Final [facility] Lab (Internal) : [address] ? ? UR ? UA-urobil normal normal Final [facility] Lab (Internal) : [address] ? ? UR ? UA-bili negative negativ Final [facility] Lab (Internal) : [address] ? ? UR ABNORMAL UA-blood trace negativ Final [facility] Lab (Internal) : [address] 11/06/2020 Urinalysis, UR ? UA-WBC 0-3 [hpf] 0-3 Rosalba l [place] Microscopic [hpf] Count ry Hospital Lab (Internal) : [address] ? ? UR ? UA-RBC 0-2 [hpf] 0-2 Final [place] [hpf] [facility] Hospital Lab (Internal) : [address], [place] t ? ? UR ? UA-bacteri rare [hpf] none Final N orth a seen Country [hpf] Hospital Lab (Internal) : [address] ? ? UR ? UA-epithel rare [hpf] none Final N orth ial seen Country [hpf] Hospital Lab (Internal) : [address], [address] ? ? UR ? UA-mucus none seen none Final Nort h [hpf] seen Country [hpf] Hospital Lab (Internal) : [address] t 11/06/2020 Troponin I, S ? Trop <0.06 NG/mL 0.00-0. Fi nal [place] Serum or 06 [facility] Plasma NG/mL Hospital Lab (Internal) : [address] 05/25/2020 SARS CoV 2 SWAB ? Covid-19 negative negativ Fin al [place] RNA Uvc e [facility] (COVID-19), Result Hospi wili QL, benefits assistant-PCR, Lab Respiratory (Inte rnal): Specimen [address] [place] t ? ? SWAB ? Performing panther ? Final Nort h Lab [facility] lab [facility] Hospital Lab (Internal) : [address] 05/24/2020 CBC W/ Auto BLD High Wbc 11.0 10*3/uL 5.0-10. F inal [place] Diff 0 [place] 10*3/uL Hospital Lab (Internal) : [address] ? ? BLD Low Rbc 4.32 10*6/uL 4.60-6. Final Nor th 00 [place] 10*6/uL Hospital Lab (Internal) : [address] ? ? BLD Low Hgb 13.3 g/dL 14.0-18 Final [place] .0 g/dL [facility] Hospital Lab (Internal) : [address] ? ? BLD Low Hct 40.9 % 41.0-51 Final [place] .0 % [facility] Hospital Lab (Internal) : [address] ? ? BLD ? Mcv 94.7 fL 80.0-96 Final [place] .0 fL [facility] Hospital Lab (Internal) : [address] ? ? BLD ? Mch 30.8 pg 26.0-32 Final North .0 pg [facility] Hospital Lab (Internal) : [address] ? ? BLD ? Mchc 32.5 g/dL 31.0-35 Final [place] .0 g/dL [facility] Hospital Lab (Internal) : [address] ? ? BLD High Rdw 16.3 % 11.5-14 Final [place] .5 % [place] Hospital Lab (Internal) : [address] ? ? BLD ? Plt 242 10*3/uL 130-450 Final Nort h 10*3/uL [facility] Lab (Internal) : [address] 05/24/2020 Culture, BLD ? Final microbiology ? Final North Blood 1 results [facility] (Internal) : [address] 05/24/2020 Culture, BLD ? Final microbiology ? Final [place] Blood 2 results [facility] (Internal) : [address] 05/24/2020 CMP, Serum S High g/r 111 mg/dL 74-106 Final North or Plasma mg/dL [facility] (Internal) : [address] t ? ? S High Bun 23 mg/dL 9-20 Final North mg/dL [facility] (Internal) : [address] t ? ? S ? Crea 0.90 mg/dL 0.66-1. Final North 25 Country mg/dL Hospital Lab (Internal) : [address] t ? ? S ? Ca 9.3 mg/dL 8.4-10. Final North 2 mg/dL [facility] (Internal) : [address] t ? ? S Low Na 136 mmol/L 137-145 Final North mmol/L [facility] (Internal) : [address] t ? ? S ? K 4.6 mmol/L 3.5-5.1 Final North mmol/L [facility] (Internal) : [address] t ? ? S Low Cl 97 mmol/L 98-107 Final [place] mmol/L [facility] (Internal) : [address], [place] ? ? S High Tco2 32.0 mmol/L 22.0-30 Final Nort h .0 [facility] mmol/L Hospital Lab (Internal) : [address] [place] ? ? S ? Tp 7.6 g/dL 6.3-8.2 Final [place] g/dL [facility] (Internal) : [address] [place] ? ? S ? Alb 4.0 g/dL 3.5-5.0 Final [place] g/dL [facility] (Internal) : [address] [place] ? ? S ? Tbil 0.9 mg/dL 0.2-1.3 Final [place] mg/dL [facility] (Internal) : [address], [place] ? ? S ? Alp 105 U/L 38-126 Final [place] U/L [facility] (Internal) : [address], [place] ? ? S ? Alt (Sgpt) 49 U/L 21-72 Final [place] U/L [facility] (Internal) : [address], [place] ? ? S ? Ast (Sgot) 48 U/L 17-59 Final [facility] Lab (Internal) : [address] t 05/24/2020 Differential BLD High Polys 89 % 40-75 % Final [facility] Lab (Internal) : [address] t ? ? BLD ? Bands 0 % 0-5 % Final [facility] Lab (Internal) : [address] ? ? BLD Low Lymphs 10 % 20-50 % Final [facility] (Internal) : [address] ? ? BLD Low [place] 0 % 2-10 % Final [facility] (Internal) : [address] ? ? BLD ? Eos 0 % 0-6 % Final [facility] (Internal) : [address] ? ? BLD ? Baso 1 % 0-1 % Final [facility] (Internal) : [address] ? ? BLD ? Atyp Lymph 0 % ? Final [facility] (Internal) : [address] t ? ? BLD ? Plts, Est. adequate adequat [facility] [address] t ? ? BLD ABNORMAL RBC abnormal normal Final [facility] Lab (Internal) : [address] t ? ? BLD ? Aniso small ? Final [facility] Lab (Internal) : [address] 05/24/2020 Neutrophil BLD ? Anc-manual 9.79 10*3/uL ? [facility] [place] [facility] : [address] 05/24/2020 Nlr-manual BLD High Nlr - 8.90 0.00-3. Final N orth Manual 20 [facility] Lab (Internal) : [address] 05/24/2020 Urinalysis, UR ? UA-color yellow pale Final [place] Dipstick, yellow [facility] Lab (Internal) : [address] t ? ? UR ? UA-appear clear clear Final [facility] Lab (Internal) : [address] t ? ? UR ? UA-spec 1.020 1.003-1 Final [place] Grav .035 [facility] Lab (Internal) : [address] t ? ? UR ? UA-pH 6.5 [pH] 4.6-8.0 Final [place] [pH] [facility] (Internal) : [address] t ? ? UR ? UA-leuk negative negativ Final [facility] Lab (Internal) : [address] t ? ? UR ? UA-nitrite negative negativ [facility] [address] t ? ? UR ? UA-prot negative negativ Final [facility] Lab (Internal) : [address] t ? ? UR ? UA-gluc negative negativ Final [facility] Lab (Internal) : [address] t ? ? UR ? UA-ketone negative negativ Final [facility] (Internal) : [address] t ? ? UR ABNORMAL UA-urobil positive normal Final [facility] ([facility] : [address] t ? ? UR ? UA-bili negative negativ Final [facility] Lab (Internal) : [address] t ? ? UR ABNORMAL UA-blood small negativ Final Nort h [facility] Lab (Internal) : [address] 05/24/2020 Urinalysis, UR ? UA-WBC 0-3 [hpf] 0-3 [place] [facility]hpf] [facility] (Internal[facility] : [address] t ? ? UR ABNORMAL UA-RBC 3-5 [hpf] 0-2 Final Nort h [hpf] [facility] (Internal) : [address] t ? ? UR ? UA-bacteri rare [hpf] none Final N orth a seen [facility] [[facility] Hospital Lab (Internal) : [address] t ? ? UR ? UA-epithel rare [hpf] none Final N orth ial seen [facility] [[facility]] Hospital Lab (Internal) : [address] t ? ? UR ABNORMAL UA-mucus few [hpf] none Final No rth seen [facility] [[facility]] Hospital Lab (Internal) : [address] 04/03/2019 BMP, Serum S - g/r 92 mg/dL 74-106 Final North or Plasma mg/dL [facility] (Internal) : [address] ? ? S High Bun 23 mg/dL 9-20 Final [place] mg/dL [facility] (Internal) : [address] t ? ? S - Crea 0.90 mg/dL 0.66-1. Final North 25 [place] mg/dL Hospital Lab (Internal) : [address] t ? ? S - Ca 9.4 mg/dL 8.4-10. Final North 2 mg/dL [facility] (Internal) : [address] t ? ? S - Na 137 mmol/L 137-145 Final North mmol/L [facility] (Internal) : [address] t ? ? S - K 4.0 mmol/L 3.5-5.1 Final [place] mmol/L [facility] (Internal) : [address] t ? ? S - Cl 100 mmol/L 98-107 Final [place] mmol/L [facility] (Internal) : [address] ? ? S High Tco2 31.0 mmol/L 22.0-30 Final Nort h .0 [facility] mmol/L [facility] Lab (Internal) : [address] 06/30/2018 Pathology TISS - Report results ? 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 05/15/2021 Microscopic Hematuria; Neoplasm of Bladd er; Lower Urinary Tract Symptoms Due to Benign Prostatic Hypertrophy Maximino Kendall MD: [address] [place] [address], Ph. Social History Tobacco Smoking Status Current Some Day Smoker Notes: dwaine saldana cigarette 0600 06/30/2018 Vaccine List Vaccine Type COVID-19, mRNA, LNP-S, PF, 100 mcg/0.5 m L dose (Moderna) 01/12/2021 02/09/2021 Plan of Care Reminders Provider Appointments None ? ? recorded. Lab None ? ? recorded. Referral None ? ? recorded. Procedures None ? ? recorded. Surgeries None ? ? recorded. Imaging None ? ? recorded. Vitals 09/04/2021 11:00AM Office 20 Height Weight BMI Blood Pressure 167.64 cm 65.45 kg 23.3 kg/m2 98/62 mm[Hg] 05/15/2021 02:40PM Office 20 Weight Blood Pressure 66.36 kg 100/62 mm[Hg] 06/17/2018 10:00AM Office 15 Height Weight BMI Blood Pressure 167.64 cm 68.04 kg 24.2 kg/m2 110/78 mm[Hg] 05/31/2017 Height Weight Blood Pressure 170.18 cm 69.13 kg 102/56 mm[Hg] 04/24/2017 Height Weight Blood Pressure 170.18 cm 71.21 kg 112/58 mm[Hg] 02/15/2017 Height Weight 170.18 cm 71.21 kg
[2022-03-05] MEDS: Normal Saline Flush 10 ML SYR IVP (12:43)
[2022-03-05 13:04] LABS: Abs Immature Grans 0.04 10^3/uL (0.0-0.06); Absolute Basophil Count 0.03 10^3/uL (0.0-0.2); Absolute Eosinophil Count 0.13 10^3/uL (0.0-0.7); Absolute Lymphocyte Count 0.71 10^3/uL (1.2-3.4); Absolute Monocyte Count 0.24 10^3/uL (0.1-0.8); Absolute Neutrophil Count 5.27 10^3/uL (1.2-6.7); Basophils % 0.5; HCT 36.7 % (40.0-50.0); HGB 11.4 g/dL (13.5-17.5); Immature Grans % 0.6; Lymphocytes % 11.1; MCH 28.1 pg (27.0-33.0); MCHC 31.1 % (32.0-36.0); MCV 91 fL (80-95); MPV 10.9 fL (8.0-11.0); Monocytes % 3.7; Neutrophils % 82.1; Platelet Count 230 10^3/uL (130-400); RBC 4.05 10^6/uL (4.36-5.78); RDW-SD 56.5 fL; WBC 6.42 10^3/uL (4.4-10.8)
[2022-03-05 13:06] LABS: Bilirubin Negative (Negative); Blood Negative (Negative); Clarity Clear (Clear); Glucose Negative (Negative); Ketones Negative (Negative); Leukocyte Esterase Negative (Negative); Nitrite Negative (Negative); Specific Gravity 1.025 (1.005-1.025)
[2022-03-05 13:30] LABS: ALT 34 U/L (16-63); AST 27 U/L (15-37); Albumin 3.2 g/dL (3.4-5.0); Alkaline Phosphatase 104 U/L (46-116); Anion Gap 2.2 mmol/L (3-11); BUN 23 mg/dL (7-18); Bilirubin, Total 0.3 mg/dL (0.2-1.0); CO2 28.8 mmol/L (21.0-32.0); Calcium 8.4 mg/dL (8.5-10.1); Chloride 104 mmol/L (98-107); FREE T4 1.06 ng/dL (0.76-1.46); Glucose 120 mg/dL (74-106); Magnesium 2.2 mg/dL (1.8-2.4); Potassium 4.3 mmol/L (3.5-5.1); Sodium 135 mmol/L (136-145); TSH 2.92 uIU/mL (0.36-3.74); Total Protein 7.1 g/dL (6.4-8.2)
[2022-03-09] MEDS: Normal Saline Flush 10 ML SYR IVP (14:37)
[2022-03-09] MEDS: Heparin 500 UNITS/5 ML SYRINGE IV (14:37)
[2022-03-19] MEDS: Normal Saline Flush 10 ML SYR IVP (10:16)
[2022-03-19 10:27] LABS: Abs Immature Grans 0.02 10^3/uL (0.0-0.06); Absolute Basophil Count 0.03 10^3/uL (0.0-0.2); Absolute Eosinophil Count 0.07 10^3/uL (0.0-0.7); Absolute Lymphocyte Count 1.53 10^3/uL (1.2-3.4); Absolute Neutrophil Count 3.95 10^3/uL (1.2-6.7); Basophils % 0.5; Eosinophils % 1.1; HCT 34.2 % (40.0-50.0); HGB 10.7 g/dL (13.5-17.5); Immature Grans % 0.3; Lymphocytes % 23.5; MCH 27.6 pg (27.0-33.0); MCHC 31.3 % (32.0-36.0); MCV 88 fL (80-95); MPV 9.7 fL (8.0-11.0); Monocytes % 13.8; Neutrophils % 60.8; Platelet Count 261 10^3/uL (130-400); RBC 3.88 10^6/uL (4.36-5.78); RDW 17.2 % (11.8-14.1); RDW-SD 54.4 fL
[2022-03-19 10:35] LABS: Bilirubin Negative (Negative); Blood Negative (Negative); Clarity Clear (Clear); Glucose Negative (Negative); Ketones Negative (Negative); Leukocyte Esterase Negative (Negative); Nitrite Negative (Negative); Specific Gravity 1.025 (1.005-1.025); Urobilinogen 0.2 EU/dL (Up TO 0.2)
[2022-03-19 10:49] LABS: ALT 32 U/L (16-63); AST 26 U/L (15-37); Albumin 2.9 g/dL (3.4-5.0); Alkaline Phosphatase 100 U/L (46-116); Anion Gap 7.6 mmol/L (3-11); BUN 21 mg/dL (7-18); Bilirubin, Total 0.3 mg/dL (0.2-1.0); CO2 28.4 mmol/L (21.0-32.0); Calcium 8.2 mg/dL (8.5-10.1); Chloride 103 mmol/L (98-107); FREE T4 1.09 ng/dL (0.76-1.46); Glucose 100 mg/dL (74-106); Magnesium 2.1 mg/dL (1.8-2.4); Potassium 3.8 mmol/L (3.5-5.1); Sodium 139 mmol/L (136-145); TSH 4.85 uIU/mL (0.36-3.74); Total Protein 6.8 g/dL (6.4-8.2)
[2022-03-26] MEDS: Normal Saline Flush 10 ML SYR IVP (13:55)
[2022-03-26 14:11] LABS: Abs Immature Grans 0.06 10^3/uL (0.0-0.06); Absolute Basophil Count 0.04 10^3/uL (0.0-0.2); Absolute Eosinophil Count 0.08 10^3/uL (0.0-0.7); Absolute Lymphocyte Count 2.14 10^3/uL (1.2-3.4); Absolute Monocyte Count 0.31 10^3/uL (0.1-0.8); Absolute Neutrophil Count 4.85 10^3/uL (1.2-6.7); Basophils % 0.5; Eosinophils % 1.1; HCT 36.9 % (40.0-50.0); HGB 11.4 g/dL (13.5-17.5); Immature Grans % 0.8; Lymphocytes % 28.6; MCH 27.8 pg (27.0-33.0); MCHC 30.9 % (32.0-36.0); MCV 90 fL (80-95); MPV 10.6 fL (8.0-11.0); Monocytes % 4.1; Neutrophils % 64.9; Platelet Count 265 10^3/uL (130-400); WBC 7.48 10^3/uL (4.4-10.8)
[2022-03-26 14:13] LABS: Bilirubin Negative (Negative); Blood Negative (Negative); Clarity Clear (Clear); Glucose Negative (Negative); Ketones Negative (Negative); Leukocyte Esterase Negative (Negative); Nitrite Negative (Negative); Specific Gravity >= 1.030 (1.005-1.025); Urobilinogen 0.2 EU/dL (Up TO 0.2); pH 5.5 (5-8)
[2022-03-26 14:33] LABS: ALT 27 U/L (16-63); AST 22 U/L (15-37); Albumin 3.2 g/dL (3.4-5.0); Alkaline Phosphatase 117 U/L (46-116); Anion Gap 5.4 mmol/L (3-11); BUN 22 mg/dL (7-18); Bilirubin, Total 0.4 mg/dL (0.2-1.0); CO2 30.6 mmol/L (21.0-32.0); CREATININE 1.1 mg/dL (0.70-1.30); Calcium 8.6 mg/dL (8.5-10.1); Chloride 103 mmol/L (98-107); FREE T4 1.04 ng/dL (0.76-1.46); Glucose 94 mg/dL (74-106); Potassium 4.3 mmol/L (3.5-5.1); Sodium 139 mmol/L (136-145); TSH 2.88 uIU/mL (0.36-3.74); Total Protein 7.2 g/dL (6.4-8.2)
== END 2022-04-03 23:59 | disposition home or self-care (01) ==
LOC: INF 02:32
PROVIDERS: Internal Medicine Hematology & Oncology; PCP Internal Medicine; Visit Provider Internal Medicine Medical Oncology
DX: C34.11 Malignant neoplasm of upper lobe, right bronchus or lung (principal); F32.0 Major depressive disorder, single episode, mild; Z45.2 Encounter for adjustment and management of vascular access device
CPT/HCPCS: 36591; 80053; 96523; 81003; 83735; 84439; 84443; 85025

== ENCOUNTER 2022-04-30 03:06 | Outpatient (RCR) | payer MEDICARE, MEDICAID, SELFPAY ==
[2022-04-23] MEDS: Normal Saline Flush 10 ML SYR IVP (09:21)
[2022-04-23 09:43] LABS: HCT 39.2 % (40.0-50.0); HGB 12.4 g/dL (13.5-17.5); RBC 4.52 10^6/uL (4.36-5.78)
[2022-04-23 09:44] LABS: Abs Immature Grans 0.03 10^3/uL (0.0-0.06); Absolute Basophil Count 0.04 10^3/uL (0.0-0.2); Absolute Lymphocyte Count 1.87 10^3/uL (1.2-3.4); Absolute Monocyte Count 0.79 10^3/uL (0.1-0.8); Absolute Neutrophil Count 6.37 10^3/uL (1.2-6.7); Basophils % 0.4; Eosinophils % 3.2; Immature Grans % 0.3; Lymphocytes % 19.9; MCH 27.4 pg (27.0-33.0); MCHC 31.6 % (32.0-36.0); MCV 87 fL (80-95); Monocytes % 8.4; Neutrophils % 67.8; Platelet Count 225 10^3/uL (130-400); RDW 18.4 % (11.8-14.1)
[2022-04-23 09:45] LABS: Bilirubin Negative (Negative); Blood Negative (Negative); Clarity Clear (Clear); Glucose Negative (Negative); Ketones Negative (Negative); Leukocyte Esterase Negative (Negative); Nitrite Negative (Negative); Specific Gravity 1.025 (1.005-1.025); Urobilinogen 0.2 EU/dL (Up TO 0.2); pH 5.5 (5-8)
[2022-04-23 10:22] LABS: ALT 24 U/L (16-63); AST 26 U/L (15-37); Alkaline Phosphatase 109 U/L (46-116); Anion Gap 8.8 mmol/L (3-11); BUN 18 mg/dL (7-18); Bilirubin, Total 0.3 mg/dL (0.2-1.0); CO2 27.2 mmol/L (21.0-32.0); CREATININE 0.9 mg/dL (0.70-1.30); Calcium 8.6 mg/dL (8.5-10.1); Chloride 101 mmol/L (98-107); FREE T4 1.08 ng/dL (0.76-1.46); Glucose 96 mg/dL (74-106); Potassium 4.1 mmol/L (3.5-5.1); Sodium 137 mmol/L (136-145); TSH 3.13 uIU/mL (0.36-3.74); Total Protein 6.9 g/dL (6.4-8.2)
[2022-04-30 08:41] LABS: Abs Immature Grans 0.06 10^3/uL (0.0-0.06); Absolute Basophil Count 0.03 10^3/uL (0.0-0.2); Absolute Eosinophil Count 0.29 10^3/uL (0.0-0.7); Absolute Lymphocyte Count 1.78 10^3/uL (1.2-3.4); Absolute Neutrophil Count 5.58 10^3/uL (1.2-6.7); Basophils % 0.4; Eosinophils % 3.6; HCT 38.5 % (40.0-50.0); HGB 12.3 g/dL (13.5-17.5); Immature Grans % 0.7; Lymphocytes % 22.1; MCH 27.6 pg (27.0-33.0); MCHC 31.9 % (32.0-36.0); MCV 86 fL (80-95); MPV 9.9 fL (8.0-11.0); Monocytes % 3.7; Neutrophils % 69.5; Platelet Count 236 10^3/uL (130-400); RBC 4.46 10^6/uL (4.36-5.78); RDW 18.4 % (11.8-14.1); RDW-SD 57.2 fL; WBC 8.04 10^3/uL (4.4-10.8)
[2022-04-30 08:43] LABS: Bilirubin Negative (Negative); Blood Negative (Negative); Clarity Clear (Clear); Glucose Negative (Negative); Ketones Negative (Negative); Leukocyte Esterase Negative (Negative); Nitrite Negative (Negative); pH 5.5 (5-8)
[2022-04-30 09:12] LABS: ALT 32 U/L (16-63); AST 30 U/L (15-37); Albumin 3.1 g/dL (3.4-5.0); Alkaline Phosphatase 118 U/L (46-116); Anion Gap 6.5 mmol/L (3-11); BUN 20 mg/dL (7-18); Bilirubin, Total 0.3 mg/dL (0.2-1.0); CO2 28.5 mmol/L (21.0-32.0); CREATININE 0.9 mg/dL (0.70-1.30); Calcium 8.7 mg/dL (8.5-10.1); Chloride 102 mmol/L (98-107); FREE T4 1.05 ng/dL (0.76-1.46); Glucose 100 mg/dL (74-106); Magnesium 2.1 mg/dL (1.8-2.4); Potassium 4.1 mmol/L (3.5-5.1); Sodium 137 mmol/L (136-145); TSH 2.35 uIU/mL (0.36-3.74); Total Protein 7.1 g/dL (6.4-8.2)
[2022-04-30] MEDS: Normal Saline Flush 10 ML SYR IVP (10:35)
== END 2022-05-03 23:59 | disposition home or self-care (01) ==
LOC: INF 03:06
PROVIDERS: Internal Medicine Hematology & Oncology; PCP Internal Medicine; Visit Provider Internal Medicine Medical Oncology
DX: C34.11 Malignant neoplasm of upper lobe, right bronchus or lung (principal); F32.0 Major depressive disorder, single episode, mild; Z45.2 Encounter for adjustment and management of vascular access device; R30.0 Dysuria; C79.51 Secondary malignant neoplasm of bone
CPT/HCPCS: 36591; 80053; 81003; 83735; 84439; 84443; 85025

== ENCOUNTER → 2022-05-14 02:18 | Outpatient (CLI) | payer MEDICARE, MEDICAID, SELFPAY ==
[2022-05-14] MEDS: Barium Sulfate 2% W/V-Berry Smoothie 450 ML BTL PO (08:51)
--- NOTE | 2022-05-14 09:00 | DI.CT_ITS ---
Exam(s) CT CHEST/ABD W EXAM: CT CHEST/ABD W CLINICAL HISTORY: METASTATIC LUNG CA, C34.11, LIVER METS, C78.7, RESTAGING TECHNIQUE: COMPARISON: CT CT CHEST/ABD/PELVIS W/CONTRAST-M2 from 06/26/[address] CHEST W from 02/22/2022 FINDINGS: CT CHEST WITH IV CONTRAST: LUNGS: Previously described right suprahilar infiltrate is unchanged. Previously described [address] nodule is unchanged.. Previously described small nodule in the right lower lobe remains unchange d. However, on the present study there is now a new 8 x 6 millimeter nodule in the right lung base. This is in the anterior basal segment of the right lower lobe. There is also a pleural base nodule in the posterior basal segment of the right lower lobe is unchanged, measuring 5 millimeters. No ple ural effusion. In the opposite-left lung there are increased markings again noted but no acute infiltrates. However , there is a 7 millimeter nodule in the left lower lobe now evident and another 4 millimeter nodule a lso evident. No pleural effusions on either side. MEDIASTINUM: No obvious hilar nor mediastinal adenopathy. No new axillary adenopathy. Visualized th yroid unremarkable. CARDIAC: Heart size is normal. No pericardial effusion. Diameter of the ascending thoracic aorta is again noted be prominent, measuring 4 cm. No dissection. Diameter of the mid aortic arch is 2.6 cm . Diameter of the descending thoracic aorta is upper normal. OSSEOUS: Fusion plate in the lower cervical spine noted. No new lytic osseous lesions evident. No n ew significant osseous findings. CT ABDOMEN WITH IV CONTRAST: As per request, this study is limited to the abdomen. The pelvis was not scanned There is no ascites in the upper abdomen. Liver: The previously described metastatic lesions seen on the lower most images of chest CT scan are again noted. These are in the right hepatic lobe. The largest is in and adjacent to the caudate lobe and has increased in size, measuring 4.7 x 4.2 cm, increased in size from 02/22/2022. Other lesions in the right hepatic lobe have also increased in size. Subcapsular lesion in the right hepatic lobe measures 4.5 by 3.8 cm. Gallbladder/biliary: No obvious gallbladder pathology. CBD diameter is normal. Pancreas: No significant focal pancreatic findings nor dilatation of the pancreatic duct. Spleen: Normal size. No lesions. Adrenals:: Right adrenal gland unremarkable. Previously described nodule in left adrenal gland is un changed, most probably metastatic. This measures 14 x 13 millimeters. KIDNEYS: No cysts nor masses. No calculi. No hydronephrosis. ABDOMINAL AORTA: Toe sclerotic there is a fusiform infrarenal abdominal aortic aneurysm with maximum diameter 4 cm at the GLORIA level. The aortic bifurcation is not included in the field of view of this abdomen only study. ANTERIOR ABDOMINAL WALL: No hernia evident. No bowel obstruction. OSSEOUS: No lytic osseous lesions. No fractures. IMPRESSION: 1. Increasing pulmonary nodules, most probably metastatic. No pleural effusions. No new intrathorac ic adenopathy. 2. Increasing size of the metastatic lesions in the right hepatic lobe. No obvious lesions in the le ft hepatic lobe. 3. Stable appearance of the 14 x 13 millimeter left adrenal nodule. 4. Abdominal aortic aneurysm with maximum diameter 4 cm. 5. No osseous lesions identified
[2022-05-14] MEDS: Omnipaque 350 MG/ML 100 ML BTL IJ (10:24)
== END ==
PROVIDERS: PCP Internal Medicine; Visit Provider Internal Medicine Medical Oncology
DX: I71.4 Abdominal aortic aneurysm, without rupture (principal); K76.9 Liver disease, unspecified; R91.8 Other nonspecific abnormal finding of lung field; E27.8 Other specified disorders of adrenal gland; C34.11 Malignant neoplasm of upper lobe, right bronchus or lung; C78.7 Secondary malignant neoplasm of liver and intrahepatic bile duct
CPT/HCPCS: 71260; 74160; J3490

== ENCOUNTER 2022-05-28 02:32 | Outpatient (RCR) | payer MEDICARE, MEDICAID, SELFPAY ==
[2022-05-14 08:47] LABS: Abs Immature Grans 0.02 10^3/uL (0.0-0.06); Absolute Basophil Count 0.04 10^3/uL (0.0-0.2); Absolute Lymphocyte Count 2.12 10^3/uL (1.2-3.4); Absolute Monocyte Count 0.83 10^3/uL (0.1-0.8); Absolute Neutrophil Count 4.14 10^3/uL (1.2-6.7); Basophils % 0.6; Eosinophils % 1.4; HCT 37.1 % (40.0-50.0); HGB 11.9 g/dL (13.5-17.5); Immature Grans % 0.3; Lymphocytes % 29.2; MCH 27.6 pg (27.0-33.0); MCHC 32.1 % (32.0-36.0); MCV 86 fL (80-95); MPV 10.4 fL (8.0-11.0); Monocytes % 11.4; Neutrophils % 57.1; Platelet Count 242 10^3/uL (130-400); RBC 4.31 10^6/uL (4.36-5.78); RDW 18.8 % (11.8-14.1); RDW-SD 58.9 fL; WBC 7.25 10^3/uL (4.4-10.8)
[2022-05-14] MEDS: Normal Saline Flush 10 ML SYR IVP (09:09)
[2022-05-14 09:18] LABS: ALT 23 U/L (16-63); AST 26 U/L (15-37); Albumin 2.8 g/dL (3.4-5.0); Alkaline Phosphatase 113 U/L (46-116); Anion Gap 7.4 mmol/L (3-11); BUN 16 mg/dL (7-18); Bilirubin, Total 0.2 mg/dL (0.2-1.0); CO2 27.6 mmol/L (21.0-32.0); CREATININE 0.9 mg/dL (0.70-1.30); Calcium 8.4 mg/dL (8.5-10.1); Chloride 105 mmol/L (98-107); FREE T4 0.99 ng/dL (0.76-1.46); Glucose 97 mg/dL (74-106); Magnesium 2.1 mg/dL (1.8-2.4); Potassium 3.5 mmol/L (3.5-5.1); Sodium 140 mmol/L (136-145); TSH 1.57 uIU/mL (0.36-3.74); Total Protein 6.8 g/dL (6.4-8.2)
[2022-05-28] MEDS: Normal Saline Flush 10 ML SYR IVP (10:40)
[2022-05-28 10:47] LABS: Abs Immature Grans 0.03 10^3/uL (0.0-0.06); Absolute Basophil Count 0.03 10^3/uL (0.0-0.2); Absolute Eosinophil Count 0.19 10^3/uL (0.0-0.7); Absolute Lymphocyte Count 1.24 10^3/uL (1.2-3.4); Absolute Monocyte Count 0.64 10^3/uL (0.1-0.8); Absolute Neutrophil Count 6.96 10^3/uL (1.2-6.7); Basophils % 0.3; Eosinophils % 2.1; HCT 37.8 % (40.0-50.0); Immature Grans % 0.3; Lymphocytes % 13.6; MCH 27.5 pg (27.0-33.0); MCHC 31.7 % (32.0-36.0); MCV 87 fL (80-95); MPV 11.2 fL (8.0-11.0); Neutrophils % 76.7; Platelet Count 175 10^3/uL (130-400); RBC 4.36 10^6/uL (4.36-5.78); RDW 19.3 % (11.8-14.1); RDW-SD 61.1 fL; WBC 9.09 10^3/uL (4.4-10.8)
[2022-05-28 11:13] LABS: ALT 25 U/L (16-63); AST 28 U/L (15-37); Alkaline Phosphatase 114 U/L (46-116); Anion Gap 5.5 mmol/L (3-11); BUN 23 mg/dL (7-18); Bilirubin, Total 0.5 mg/dL (0.2-1.0); CO2 28.5 mmol/L (21.0-32.0); Calcium 8.7 mg/dL (8.5-10.1); Chloride 102 mmol/L (98-107); Glucose 116 mg/dL (74-106); Potassium 4.3 mmol/L (3.5-5.1); Sodium 136 mmol/L (136-145)
== END 2022-06-03 23:59 | disposition home or self-care (01) ==
LOC: INF 02:32
PROVIDERS: PCP Internal Medicine; Visit Provider Internal Medicine Medical Oncology
DX: C34.11 Malignant neoplasm of upper lobe, right bronchus or lung (principal); F32.0 Major depressive disorder, single episode, mild; Z45.2 Encounter for adjustment and management of vascular access device
CPT/HCPCS: 36591; 80053; 83735; 84439; 84443; 85025

== ENCOUNTER 2022-06-18 02:15 | Outpatient (RCR) | payer MEDICARE, MEDICAID, SELFPAY ==
[2022-06-18] MEDS: Normal Saline Flush 10 ML SYR IVP (09:54)
[2022-06-18 10:08] LABS: Abs Immature Grans 0.07 10^3/uL (0.0-0.06); Absolute Basophil Count 0.02 10^3/uL (0.0-0.2); Absolute Lymphocyte Count 1.34 10^3/uL (1.2-3.4); Absolute Monocyte Count 0.99 10^3/uL (0.1-0.8); Absolute Neutrophil Count 9.95 10^3/uL (1.2-6.7); Basophils % 0.2; HCT 40.2 % (40.0-50.0); HGB 12.8 g/dL (13.5-17.5); Immature Grans % 0.6; Lymphocytes % 10.8; MCH 27.4 pg (27.0-33.0); MCHC 31.8 % (32.0-36.0); MCV 86 fL (80-95); MPV 10.4 fL (8.0-11.0); Neutrophils % 80.4; Platelet Count 243 10^3/uL (130-400); RBC 4.67 10^6/uL (4.36-5.78); RDW-SD 59.5 fL; WBC 12.38 10^3/uL (4.4-10.8)
[2022-06-18 10:36] LABS: ALT 41 U/L (16-63); AST 34 U/L (15-37); Alkaline Phosphatase 146 U/L (46-116); Anion Gap 7.3 mmol/L (3-11); BUN 20 mg/dL (7-18); Bilirubin, Total 0.4 mg/dL (0.2-1.0); CO2 28.7 mmol/L (21.0-32.0); CREATININE 0.9 mg/dL (0.70-1.30); Chloride 102 mmol/L (98-107); Glucose 116 mg/dL (74-106); Sodium 138 mmol/L (136-145); TSH 0.46 uIU/mL (0.36-3.74); Total Protein 7.6 g/dL (6.4-8.2)
== END 2022-07-04 23:59 | disposition home or self-care (01) ==
LOC: INF 02:15
PROVIDERS: PCP Internal Medicine; Visit Provider Internal Medicine Medical Oncology
DX: C34.11 Malignant neoplasm of upper lobe, right bronchus or lung (principal); F32.0 Major depressive disorder, single episode, mild; Z45.2 Encounter for adjustment and management of vascular access device; C79.51 Secondary malignant neoplasm of bone
CPT/HCPCS: 36415; 36591; 80053; 84439; 84443; 85025